=== PATIENT | female | born 1935 | race Caucasian/White ===

== ENCOUNTER 2018-04-26 23:37 | Inpatient (IN) | payer MEDICARE, OTHER ==
[~2018-04-26 23:37] MED LIST: AMLO5TAB22 PO; BUPR-86 PO; DONE10TA14 PO; HYDR-3533 PO; LIBRAX PO; OMPR20CCR PO; PROM25SU8 PO; ULTR50TA PO
[2018-04-26 23:39] VITALS: BP 230/97; PULSE 104; RESP 18; TEMP 97.5; O2SAT 95
[2018-04-26] MEDS ORDERED: TRAM50TA PO (23:56)
[2018-04-26 23:58] VITALS: BP_SYST 180; BP_SYST 208; BP_DIAS 95; BP_DIAS 98; PULSE 92; RESP 18; O2SAT 94
[2018-04-27] VITALS (22 sets, daily range): BP systolic 134–198; BP diastolic 60–85; PULSE 67–96; RESP 18; TEMP 98.2–99; O2SAT 93–97
[2018-04-27] MEDS ORDERED: SODIUM CHLORIDE 0.9% FLUSH 10 ML FLUSH IV FLUSH PRN ×2 (00:15→03:30)
--- NOTE | 2018-04-27 00:44 | RADRPT ---
EXAM DATE: 04/27/2018 12:38 AM EDT AGE/SEX: 82 years / Female INDICATIONS: Syncopal episode. CLINICAL DATA: This is the patient's initial encounter. Patient reports that signs and symptoms have been present for 1 day and indicates a pain score of 0/10. MEDICAL/SURGICAL HISTORY: Hypertension. Carcinoma, breast. . Lumpectomy. COMPARISON: No prior exams available for comparison. FINDINGS: Single AP view of the chest. The lungs are clear. Cardiomediastinal silhouette within norm al limits. No evidence of pleural effusion or pneumothorax. CONCLUSION: No acute cardiopulmonary disease identified. Electronically signed by: Rebel Javier MD 04/27/2018 12:43 AM EDT
[2018-04-27 00:49] LABS: BLOOD, URINE MOD (NEG); GLUCOSE,URINE NEG (NEG); KETONE, URINE 40 mg/dL (NEG); NITRITE,URINE NEG (NEG); PH, URINE 5.5 (5.0-8.5); URINE COLOR YELLOW (YELLW/STRAW); URINE LEUKOCYTE ESTERASE SMALL (NEG)
[2018-04-27 00:52] LABS: BILIRUBIN, URINE NEG (NEG)
[2018-04-27 00:55] LABS: BACTERIA, URINE FEW /hpf; SQUAMOUS EPITHELIAL CELL URINE > 8 /hpf (0-5)
[2018-04-27 01:20] LABS: AUTOMATED NEUTROPHIL # 9.2 TH/MM3 (1.8-7.7); BASOPHIL # 0.3 TH/MM3 (0-0.2); BASOPHIL % 2.8 % (0.0-2.0); EOSINOPHIL % 0.1 % (0.0-4.0); HEMATOCRIT 42.3 % (35.0-46.0); HEMOGLOBIN 14.9 GM/DL (11.6-15.3); LYMPH % 7.1 % (9.0-44.0); LYMPHOCYTE # 0.8 TH/MM3 (1.0-4.8); MEAN CELL VOLUME 93.6 FL (80.0-100.0); MEAN CORPUSCULAR HGB CONC 35.2 % (32.0-36.0); MEAN PLATELET VOLUME 10.1 FL (7.0-11.0); MONO % 6.1 % (0.0-8.0); MONOCYTE # 0.7 TH/MM3 (0-0.9); NEUT % 83.9 % (16.0-70.0); PLATELET COUNT 244 TH/MM3 (150-450); RED BLOOD COUNT 4.52 MIL/MM3 (4.00-5.30); RED CELL DISTRIBUTION WIDTH 13.1 % (11.6-17.2)
[2018-04-27 01:24] LABS: CHLORIDE 99 MEQ/L (98-107); SODIUM (NA) 134 MEQ/L (136-145)
[2018-04-27 01:28] LABS: CALCIUM 9.1 MG/DL (8.5-10.1); PROTHROMBIN TIME - PATIENT 10.5 SEC (9.8-11.6)
[2018-04-27 01:29] LABS: BICARBONATE 26.7 MEQ/L (21.0-32.0); BLOOD UREA NITROGEN 11 MG/DL (7-18); GLUCOSE,RANDOM 123 MG/DL (74-106)
[2018-04-27 01:31] LABS: ALT (GPT) 26 U/L (10-53); AST (GOT) 17 U/L (15-37)
[2018-04-27 01:32] LABS: CREATININE 0.81 MG/DL (0.50-1.00); GLOMERULAR FILTRATION RATE 67 ML/MIN (>89)
[2018-04-27 01:33] LABS: LACTIC ACID SEPSIS PROTOCOL 2.2 mmol/L (0.4-2.0); TOTAL BILIRUBIN ADULT 0.7 MG/DL (0.2-1.0); TOTAL PROTEIN 8.1 GM/DL (6.4-8.2)
[2018-04-27 01:34] LABS: ALKALINE PHOSPHATASE 57 U/L (45-117)
[2018-04-27 01:36] LABS: ACETAMINOPHEN LESS THAN 10.0 MCG/ML (10.0-30.0)
[2018-04-27 01:37] LABS: TROPONIN I 0.11 NG/ML (0.02-0.05)
--- NOTE | 2018-04-27 01:40 | PD ---
HPI Chief Complaint: Pain: Acute or Chronic Time Seen by Provider: 00:09 Travel History International Travel<30 days: No Contact w/Intl Traveler<30days: No Traveled to known affect area: No History of Present Illness HPI 82-year-old female is brought to the emergency room by her caregiver for evaluation of altered mental status and abdominal pain. Patient has history of chronic abdominal pain and chronic nausea for several years. Patient is under care of Dr. Gaston. Patient states her nausea and abdominal pain are worse over the weekend. Patient denies any fever chills. Patient denies any chest pain or shortness of breath. Patient has had no hematemesis or coffee-ground emesis. Patient denies diarrhea melena or hematochezia. Caregiver states that she is with the patient and her significant other Thursday through Thursday. Caregiver reports that on Thursday she was her typical self but today she seems confused disoriented complains of increasing nausea poor appetite and abdominal pain. Also caregiver reports that she suspects that the patient has been taking her significant other's medications as the significant other accused her of taking his medications. Patient was supposed to see her primary care provider on Thursday but canceled the appointment. Patient was reportedly within the past 2 months seen by her learning officer for urinary tract infection but has not been to any other doctor appointments according to the caregiver. Patient reports that she was seen by her vp site sometime recently for cardiac catheterization. The caregiver states that she has not seen a vp site does not have a vp site and has not had a cardiac catheterization. Patient rates her abdominal pain 7/10 intensity. No report of fall or known injury. Patient with known prior history of anxiety depression colon cancer with partial colectomy breast cancer with lumpectomy hypertension dyslipidemia and chronic pain syndrome. Patient is unable to identify exacerbating or alleviating factors. PFSH Past Medical History Narrative Medical Colon cancer status post partial colectomy breast cancer status post lumpectomy diminished hearing hypertension dyslipidemia tobacco use; nursing notes reviewed Cancer: Yes (breast, colon) Diminished Hearing: Yes Hypertension: Yes Past Surgical History Thoracic Surgery: Yes (lumpectomy, colon) Social History Alcohol Use: No Tobacco Use: Yes Substance Use: No Allergies-Medications (Allergen,Severity, Reaction): Coded Allergies: No Known Allergies (Unverified Allergy, Unknown, 04/27/18) Reported Meds & Prescriptions Reported Meds & Active Scripts Active Reported Tylenol (Acetaminophen) 325 Mg Tab 650 Mg PO Q4H PRN Lorazepam 1 Mg Tab 1 Mg PO Q6H PRN Tramadol (Tramadol HCl) 50 Mg Tab 50 Mg PO Q6H PRN Review of Systems ROS Limitations: Clinical Condition, Poor Historian General / Constitutional: No: Fever Eyes: No: Visual changes HENT: No: Congestion Cardiovascular: No: Chest Pain or Discomfort Respiratory: No: Shortness of Breath Gastrointestinal: Positive: Nausea, Abdominal Pain Genitourinary: No: Dysuria, Flank Pain Musculoskeletal: No: Myalgias, Arthralgias Skin: No Rash Neurologic: Positive: Weakness, Headache, Change in Mentation, No: Dizziness, Syncope, Focal Abnormalities, Coordination Problem, Slurred Speech, Paresthesia Psychiatric: No: Anxiety Hematologic/Lymphatic: No: Lymph Node Enlargement Physical Exam Narrative GENERAL: Well-developed well-nourished female no acute respiratory distress SKIN: Warm and dry. HEAD: Atraumatic. Normocephalic. EYES: Pupils equal and round. No scleral icterus. No injection or drainage. ENT: No nasal bleeding or discharge. Mucous membranes pink and moist. NECK: Trachea midline. No JVD. CARDIOVASCULAR: Regular rate and rhythm. RESPIRATORY: No accessory muscle use. Clear to auscultation. Breath sounds equal bilaterally. GASTROINTESTINAL: Abdomen soft, non-tender except left lower quadrant greater than left upper quadrant, nondistended. Hepatic and splenic margins not palpable. Rectal exam: Normal sphincter tone scant brown stool on exam glove Hemoccult negative. MUSCULOSKELETAL: Extremities without clubbing, cyanosis, or edema. No obvious deformities. NEUROLOGICAL: Awake and alert. No obvious cranial nerve deficits. Motor grossly within normal limits. Five out of 5 muscle strength in the arms and legs. Normal speech. PSYCHIATRIC: Appropriate mood and affect; insight and judgment normal. Data Data Last Documented VS Vital Signs Date Time Temp Pulse Resp B/P (MAP) Pulse Ox O2 Delivery O2 Flow Rate FiO2 04/27/18 03:06 92 18 198/83 (121) 96 Nasal Cannula 2.00 04/26/18 23:39 97.5 Orders Orders Electrocardiogram (04/27/18 00:10) Ammonia (04/27/18 00:10) Complete Blood Count With Diff (04/27/18 00:10) Comprehensive Metabolic Panel (04/27/18 00:10) Creatine Kinase (Cpk) (04/27/18 00:10) Prothrombin Time / Inr (Pt) (04/27/18 00:10) Act Partial Throm Time (Ptt) (04/27/18 00:10) Troponin I (04/27/18 00:10) Thyroid Stimulating Hormone (04/27/18 00:10) Urinalysis - C+S If Indicated (04/27/18 00:10) Lactic Acid Sepsis Protocol (04/27/18 00:10) Blood Culture (04/27/18 00:10) Chest, Single Ap (04/27/18 00:10) Ct Brain W/O Iv Contrast(Rout) (04/27/18 00:10) Blood Glucose (04/27/18 00:10) Ecg Monitoring (04/27/18 00:10) Iv Access Insert/Monitor (04/27/18 00:10) Oximetry (04/27/18 00:10) Sodium Chloride 0.9% Flush (Ns Flush) (04/27/18 00:15) Drug Screen, Random Urine (04/27/18 00:10) Alcohol (Ethanol) (04/27/18 00:10) Tylenol (Acetaminophen) (04/27/18 00:10) Salicylates (Aspirin) (04/27/18 00:10) Magnesium (Mg) (04/27/18 00:10) Ct Abd/Pel W Iv Contrast(Rout) (04/27/18 ) Urine Culture (04/27/18 00:30) Aspirin Chew (Aspirin Chew) (04/27/18 01:45) Nitroglycerin 2% Oint (Nitroglycerin 2% (04/27/18 01:45) Metoclopramide Inj (Reglan Inj) (04/27/18 01:45) Morphine Inj (Morphine Inj) (04/27/18 01:45) Ondansetron Odt (Zofran Odt) (04/27/18 02:00) Ceftriaxone Inj (Rocephin Inj) (04/27/18 02:00) Iohexol 350 Inj (Omnipaque 350 Inj) (04/27/18 02:26) Ciprofloxacin 400 Mg Premix (Cipro 400 M (04/27/18 03:00) Metronidazole 500 Mg Inj (Flagyl 500 Mg (04/27/18 03:00) Pantoprazole Inj (Protonix Inj) (04/27/18 03:00) Metoprolol Tartrate Inj (Lopressor Inj) (04/27/18 03:00) Heparin Inj (Heparin Inj) (04/27/18 03:15) Heparin-D5w 25,000 U/250 Ml (Heparin-D5w (04/27/18 03:15) Cbc No Diff, Includes Plts (04/30/18 06:00) Act Partial Throm Time (Ptt) (04/27/18 10:01) Occult Blood (Hemoccult) Stool (04/27/18 03:01) Ciprofloxacin 400 Mg Premix (Cipro 400 M (04/27/18 14:00) Metronidazole 500 Mg Inj (Flagyl 500 Mg (04/27/18 12:00) Morphine Inj (Morphine Inj) (04/27/18 03:30) Vital Signs (Adult) Q4H (04/27/18 03:20) Activity Oob With Assistance (04/27/18 03:20) Composition Worker / Telemetry .CONTINUOUS (04/27/18 03:20) Intake + Output BARBIE.QSHIFT (04/27/18 03:20) Diet Npo (04/27/18 Breakfast) Sodium Chlor 0.9% 1000 Ml Inj (Ns 1000 M (04/27/18 03:20) Sodium Chloride 0.9% Flush (Ns Flush) (04/27/18 03:30) Sodium Chloride 0.9% Flush (Ns Flush) (04/27/18 09:00) Acetaminophen (Tylenol) (04/27/18 03:30) Basic Metabolic Panel (Bmp) (04/28/18 06:00) Complete Blood Count With Diff (04/28/18 06:00) Creatine Kinase (Cpk) (04/27/18 06:55) Creatine Kinase (Cpk) (04/27/18 12:55) Troponin I (04/27/18 06:55) Troponin I (04/27/18 12:55) Electrocardiogram (04/27/18 06:55) Electrocardiogram (04/27/18 12:55) Resp Oxygen Frederick C Titrat 1-4 L (04/27/18 ) Case Management Consult (04/27/18 03:20) Naloxone Inj (Narcan Inj) (04/27/18 03:30) Inpatient Certification (04/27/18 ) Lorazepam (Ativan) (04/27/18 03:30) Admit To Inpatient (04/27/18 03:25) Prochlorperazine Inj (Compazine Inj) (04/27/18 03:30) Admit Order (Ed Use Only) (04/27/18 ) Composition Worker / Telemetry BARBIE.Q8H (04/27/18 03:25) Activity Bed Rest (04/27/18 03:25) Notify Dr: Other (04/27/18 03:25) Sodium Chlor 0.9% 1000 Ml Inj (Ns 1000 M (04/27/18 03:30) Labs Laboratory Tests Test 04/27/18 00:30 04/27/18 00:55 Urine Color YELLOW Urine Turbidity SL CLOUDY Urine pH 5.5 Urine Specific [place] GREATER/EQUAL 1.030 Urine Protein 30 mg/dL Urine Glucose (UA) NEG mg/dL Urine Ketones 40 mg/dL Urine Occult Blood MOD Urine Nitrite NEG Urine Bilirubin NEG Urine Urobilinogen 0.2 MG/DL Urine Leukocyte Esterase SMALL Urine RBC 4-9 /hpf Urine WBC 9-14 /hpf Urine Squamous Epithelial Cells > 8 /hpf Urine Bacteria FEW /hpf Microscopic Urinalysis Comment CULTURE INDICATED Urine Opiates Screen NEG Urine Barbiturates Screen NEG Urine Amphetamines Screen NEG Urine Benzodiazepines Screen NEG Urine Cocaine Screen NEG Urine Cannabinoids Screen NEG White Blood Count 11.0 TH/MM3 Red Blood Count 4.52 MIL/MM3 Hemoglobin 14.9 GM/DL Hematocrit 42.3 % Mean Corpuscular Volume 93.6 FL Mean Corpuscular Hemoglobin 33.0 PG Mean Corpuscular Hemoglobin Concent 35.2 % Red Cell Distribution Width 13.1 % Platelet Count 244 TH/MM3 Mean Platelet Volume 10.1 FL Neutrophils (%) (Auto) 83.9 % Lymphocytes (%) (Auto) 7.1 % Monocytes (%) (Auto) 6.1 % Eosinophils (%) (Auto) 0.1 % Basophils (%) (Auto) 2.8 % Neutrophils # (Auto) 9.2 TH/MM3 Lymphocytes # (Auto) 0.8 TH/MM3 Monocytes # (Auto) 0.7 TH/MM3 Eosinophils # (Auto) 0.0 TH/MM3 Basophils # (Auto) 0.3 TH/MM3 CBC Comment DIFF FINAL Differential Comment Prothrombin Time 10.5 SEC Prothromb Time International Ratio 1.0 RATIO Activated Partial Thromboplast Time 26.4 SEC Blood Urea Nitrogen 11 MG/DL Creatinine 0.81 MG/DL Random Glucose 123 MG/DL Total Protein 8.1 GM/DL Albumin 4.0 GM/DL Calcium Level 9.1 MG/DL Magnesium Level 2.0 MG/DL Alkaline Phosphatase 57 U/L Aspartate Amino Transf (AST/SGOT) 17 U/L Alanine Aminotransferase (ALT/SGPT) 26 U/L Total Bilirubin 0.7 MG/DL Sodium Level 134 MEQ/L Potassium Level 4.1 MEQ/L Chloride Level 99 MEQ/L Carbon Dioxide Level 26.7 MEQ/L Anion Gap 8 MEQ/L Estimat Glomerular Filtration Rate 67 ML/MIN Lactic Acid Level 2.2 mmol/L Ammonia LESS THAN 10 MCMOL/L Total Creatine Kinase 113 U/L Troponin I 0.11 NG/ML Thyroid Stimulating Hormone 3rd Gen 1.050 uIU/ML Salicylates Level LESS THAN 1.7 MG/DL Acetaminophen Level LESS THAN 10.0 MCG/ML Ethyl Alcohol Level LESS THAN 3 MG/DL MDM Medical Decision Making Medical Screen Exam Complete: Yes Emergency Medical Condition: Yes Medical Record Reviewed: Yes Interpretation(s) EKG: Normal sinus rhythm rate 90 first-degree AV block right bundle branch block QS inferiorly age-indeterminate; no comparison EKG Last Impressions Chest X-Ray 04/27/18 0010 Signed Impressions: CONCLUSION: No acute cardiopulmonary disease identified. CBC & BMP Diagram 04/27/18 00:55 Total Protein 8.1, Albumin 4.0, Calcium Level 9.1, Magnesium Level 2.0, Alkaline Phosphatase 57, Aspartate Amino Transf (AST/SGOT) 17, Alanine Aminotransferase (ALT/SGPT) 26, Total Bilirubin 0.7 Vital Signs Date Time Temp Pulse Resp B/P (MAP) Pulse Ox O2 Delivery O2 Flow Rate FiO2 04/26/18 23:58 92 18 180/95 (123) 94 208/98 (134) 04/26/18 23:39 97.5 104 18 230/97 (141) 95 UA: wbc's culture indicated Troponin I 0.11, elevated; CK 113, not elevated TSH: 1.050, within normal limits Lactic acid: 2.2 Urine drug screen negative acetaminophen and salicylate levels are not elevated ; alcohol less than 3, not elevated Last Impressions Head CT 04/27/18 001 Signed Impressions: CONCLUSION: No acute intracranial findings. Chest X-Ray 04/27/189 Signed Impressions: CONCLUSION: No acute cardiopulmonary disease identified. Abdomen/Pelvis CT 04/27/18 0000 Signed Impressions: CONCLUSION: 1. Mild circumferential wall thickening, adjacent edema, and mucosal enhanceme nt of the colon at the splenic fracture and proximal descending segment. Findin gs suggest colitis. Differential diagnosis includes infection and ischemia. 2. Postsurgical findings with evidence of proximal colon resection. 3. Mild hepatic steatosis. Gallbladder not visualized. 4. Degenerative findings lumbar spine. CBC & BMP Diagram 04/27/18 00:55 Total Protein 8.1, Albumin 4.0, Calcium Level 9.1, Magnesium Level 2.0, Alkaline Phosphatase 57, Aspartate Amino Transf (AST/SGOT) 17, Alanine Aminotransferase (ALT/SGPT) 26, Total Bilirubin 0.7 Vital Signs Date Time Temp Pulse Resp B/P (MAP) Pulse Ox O2 Delivery O2 Flow Rate FiO2 04/27/18 01:57 84 18 192/74 (113) Nasal Cannula 2.00 04/26/18 23:58 92 18 180/95 (123) 94 208/98 (134) 04/26/18 23:39 97.5 104 18 230/97 (141) 95 Differential Diagnosis Abdominal pain, colitis, diverticulitis, biliary colic, bowel obstruction, atypical appendicitis, UTI, abdominal aortic aneurysm, altered mentation, CVA, TIA, hyperammonemia, arrhythmia, metabolic encephalopathy, polysubstance ingestion, accidental overdose, ACS, SC Narrative Course Patient placed on electronic device monitor IV access obtained specimens collected and sent for resulting; EKG consistent with right bundle branch block QS inferiorly age-indeterminate Patient administered Reglan 10 mg IV Protonix 40 mg IV and morphine sulfate 2 mg IV for pain and nausea Patient administered aspirin 162 mg by mouth Nitropaste 1 inch to chest wall and Zofran 4 mg ODT CBC is automated differential is within normal limits except for 89% neutrophils by automated differential; lactic acid is elevated at 2.2 Metabolic panel grossly within normal range; troponin I however is elevated 0.11 with a CK of 113 not elevated; ammonia level was less than 10 not elevated ; TSH 1.[address] brain resulted and no acute abnormality identified chest x-ray reveals no lobar infiltrate CT abdomen pelvis shows intestinal wall thickening without pneumatosis concerning for colitis ischemic versus infectious unclear at this time rectal exam is negative for blood patient will be treated with IV Cipro and Flagyl presumptively and patient started on heparin infusion for elevated troponin I with markedly aorta and iliac calcification/atherosclerosis. At 3 AM patient reports that she feels well her mentation seems to be improved patient denies any pain except has reproducible left lower quadrant abdominal tenderness to palpation without guarding or rebound. Patient's case discussed with on-call medicine for admission for ACS abdominal pain with probable colitis concerning for possible early ischemic colitis. Abnormal urinalysis specimens clean catch with greater than 8 squamous epithelial cells--1 for culture and sensitivity Critical Care Narrative Aggregate critical care time was 35 minutes. Time to perform other separately billable procedures was not included in the critical care time. My time did not include minutes spent treating any other patients simultaneously or on activities that did not directly contribute to the patient's treatment. The services I provided to this patient were to treat and/or prevent clinically significant deterioration that could result in: Myocardial infarction bowel infarction septic shock I provided critical care services requiring my management, as noted below: Chart data review, documentation time, medication orders and management, vital sign assessments/reviewing monitor data, ordering and reviewing lab tests, ordering and interpreting/reviewing x-rays and diagnostic studies, care of the patient and discussion of the patient with the admitting physicians. [facility] Point of Care Internal Pos. & Neg. Controls: Passed Fecal Specimen Occult Blood: Negative Physician Communication Physician Communication call placed to Dr Mosqueda --admit to [facility]ic Diagnosis Primary Impression: Abdominal pain Qualified Codes: R10.32 - Left lower quadrant pain Additional Impressions: ACS (acute coronary syndrome) Acute colitis Admitting Information Admitting Physician Requests: Admit Ana Maria Galvez MD Apr 27, 2018 01:40
[2018-04-27] MEDS ORDERED: MORPHINE SULFATE 4 MG/ML INJ IV PUSH ONE (01:45)
[2018-04-27] MEDS ORDERED: NITROGLYCERIN 2% OINT 1 GM PACKET TOPICAL ONE (01:45)
[2018-04-27] MEDS ORDERED: METOCLOPRAMIDE HCL 10 MG/2 ML VIAL IV PUSH ONE (01:45)
[2018-04-27] MEDS ORDERED: ASPIRIN 81 MG CHEW TAB CHEW ONE (01:45)
[2018-04-27] MEDS ORDERED: cefTRIAXone INJ 1,000 MG in SODIUM CHLORIDE 0.9% INJ 100 ML IV ONE (02:00)
[2018-04-27] MEDS ORDERED: ONDANSETRON ODT 4 MG TAB PO ONE (02:00)
--- NOTE | 2018-04-27 02:25 | RADRPT ---
EXAM DATE: 04/27/2018 2:14 AM EDT AGE/SEX: 82 years / Female INDICATIONS: Altered mental status. CLINICAL DATA: This is the patient's initial encounter. Patient reports that signs and symptoms have been present for 1 day and indicates a pain score of 0/10. MEDICAL/SURGICAL HISTORY: Hypertension. Carcinoma, colon. Carcinoma, breast. None. RADIATION DOSE: 66.23 CTDI (mGy) COMPARISON: No prior exams available for comparison. TECHNIQUE: CT of the head without contrast. Using automated exposure control and adjustment of the mA and/or kV according to patient size, radiation dose was kept as low as reasonably achievable to ob tain optimal diagnostic quality images. FINDINGS: Cerebrum: The ventricles are normal for age. No evidence of midline shift, mass lesion, hemorrhage or acute infarction. No extraaxial fluid collections are seen. Posterior Fossa: The cerebellum and brainstem are intact. The 4th ventricle is midline. The cerebe llopontine angle is unremarkable. Extracranial: The visualized portion of the orbits is intact. Skull: The calvaria is intact. No evidence of skull fracture. CONCLUSION: No acute intracranial findings. Electronically signed by: Rebel Javier MD 04/27/2018 2:23 AM EDT
[2018-04-27] MEDS ORDERED: IOHEXOL 350 MG/ML 10 ML VIAL (for RAD DIAG) IVCONTRAST ONE (02:26)
--- NOTE | 2018-04-27 02:46 | RADRPT ---
EXAM DATE: 04/27/2018 2:25 AM EDT AGE/SEX: 82 years / Female INDICATIONS: Nausea for years; worsening. CLINICAL DATA: This is the patient's initial encounter. Patient reports that signs and symptoms have been present for > 1 year and indicates a pain score of 4/10. MEDICAL/SURGICAL HISTORY: Hypertension. Carcinoma, colon. Carcinoma, breast. None. ORAL CONTRAST: No oral contrast ingested. RADIATION DOSE: 15.27 CTDI (mGy) COMPARISON: No prior exams available for comparison. TECHNIQUE: Multiple contiguous axial images were obtained through the abdomen and pelvis following b olus infusion of 94 ml Omnipaque 350 (iohexol) nonionic water-soluble contrast as a single exam dos e. No oral contrast ingested. Using automated exposure control and adjustment of the mA and/or kV ac cording to patient size, the radiation dose was kept as low as reasonably achievable to obtain optima l diagnostic quality images. FINDINGS: Lower Lungs: Mild atelectasis at the lung bases. Liver: Mild diffuse hypodensity of the liver indicating mild hepatic steatosis. No focal mass identif ied. Gallbladder not identified. Spleen: Homogeneous density without enlargement. Pancreas: Diffuse atrophy of the pancreatic body and tail. Coarse calcification in the pancreatic purnima dy. No focal mass identified. Kidneys: Normal in size and shape. No evidence of mass or hydronephrosis. Adrenal Glands: Unremarkable. Aorta: Diffuse aortoiliac calcification. Aortic diameter within normal limits. Bowel/Mesentery: Small hiatal hernia. No evidence of bowel dilatation. Postsurgical findings in the right lower quadrant with evidence of prior hemicolectomy. Mild circumferential wall thickening, muco jerry enhancement, and mild surrounding edema of the colon at the splenic flexure/proximal descending s egment. No evidence of bowel wall pneumatosis. No free air or free fluid. Abdominal Wall: Intact. Retroperitoneum: No evidence of adenopathy in the retrocrural, para-aortic, or deep pelvic regions. Bladder: Contours are smooth. Reproductive Organs: No abnormal masses or calcifications seen. Inguinal: The inguinal region is unremarkable without evidence of adenopathy. Bony Structures: Moderate severity degenerative findings of the lower lumbar spine. CONCLUSION: 1. Mild circumferential wall thickening, adjacent edema, and mucosal enhancement of the colon at the splenic fracture and proximal descending segment. Findings suggest colitis. Differential diagnosis i ncludes infection and ischemia. 2. Postsurgical findings with evidence of proximal colon resection. 3. Mild hepatic steatosis. Gallbladder not visualized. 4. Degenerative findings lumbar spine. Electronically signed by: Rebel Javier MD 04/27/2018 2:44 AM EDT
[2018-04-27] MEDS ORDERED: METOPROLOL TARTRATE 5 MG/5 ML VIAL IV PUSH ONE (03:00)
[2018-04-27] MEDS ORDERED: CIPROFLOXACIN 400 MG PREMIX 200 ML IV ONE (03:00)
[2018-04-27] MEDS ORDERED: metroNIDAZOLE 500 MG INJ 100 ML IV ONE (03:00)
[2018-04-27] MEDS ORDERED: PANTOPRAZOLE SODIUM 40 MG VIAL IV PUSH ONE (03:00)
[2018-04-27] MEDS ORDERED: HEPARIN SODIUM - IV 10,000 UNITS/10 ML VIAL IV PUSH ONE (03:15)
[2018-04-27] MEDS ORDERED: LORA1TAB12 PO (03:19)
[2018-04-27] MEDS ORDERED: TYLE325T PO (03:20)
[2018-04-27] MEDS ORDERED: PROCHLORPERAZINE INJ 10 MG/2 ML VIAL IV PUSH PRN (03:30)
[2018-04-27] MEDS ORDERED: NALOXONE HCL 0.4 MG/ML AMP IV PUSH PRN (03:30)
[2018-04-27] MEDS ORDERED: cefTRIAXone INJ 1,000 MG in SODIUM CHLORIDE 0.9% INJ 100 ML IV SCH (03:30)
[2018-04-27] MEDS ORDERED: MORPHINE SULFATE 2 MG/ML SYRINGE IV PUSH PRN (03:30)
[2018-04-27] MEDS ORDERED: SODIUM CHLOR 0.9% 1000 ML INJ 1,000 ML IV SCH (03:30)
[2018-04-27] MEDS ORDERED: ACETAMINOPHEN 325 MG TAB PO PRN (03:30)
[2018-04-27] MEDS: HEPARIN-D5W 25,000 U/250 ML 250 ML IV PRN (03:38)
[2018-04-27] MEDS: LORazepam 1 MG TAB PO PRN ×4 (03:49→23:25)
[2018-04-27] MEDS: SODIUM CHLOR 0.9% 1000 ML INJ 1,000 ML IV SCH ×3 (05:27→23:25)
[2018-04-27] MEDS: cefTRIAXone INJ 1,000 MG in SODIUM CHLORIDE 0.9% INJ 100 ML IV SCH (05:50)
[2018-04-27 07:08] LABS: TROPONIN I 0.1 NG/ML (0.02-0.05)
--- NOTE | 2018-04-27 08:05 | EKG ---
Date Performed: 04/27/2018 Time Performed: 00:22:05 PTAGE: 82 years EKG: Baseline artifact present Sinus rhythm WITH FIRST DEGREE AV BLOCK RIGHT BUNDLE BRANCH BLOCK ABNORMAL ECG NO PREVIOUS TRACING DOCTOR: Giorgi Burns Interpretating Date/Time 04/27/2018 08:03:48
--- NOTE | 2018-04-27 08:07 | EKG ---
Date Performed: 04/27/2018 Time Performed: 07:07:45 PTAGE: 82 years EKG: Sinus rhythm Right bundle branch block Nonspecific ST and T wave abnormalities Cannot rule out Inferior myocardia l infarction ABNORMAL ECG There are no definite changes seen although both EKGs have baseline artifac t. PREVIOUS TRACING : 04/27/2018 00.22 DOCTOR: Giorgi Burns Interpretating Date/Time 04/27/2018 08:05:36
[2018-04-27] MEDS: SODIUM CHLORIDE 0.9% FLUSH 10 ML FLUSH IV FLUSH SCH ×2 (09:00→20:09)
[2018-04-27] MEDS: metroNIDAZOLE 500 MG INJ 100 ML IV SCH ×2 (11:57→20:09)
--- NOTE | 2018-04-27 12:01 | HHI.HP ---
History of Present Illness Primary Care Physician Sourav Gaston, DO Admission Diagnosis ACS; colitis Diagnoses: History of Present Illness 82-year-old female came to ER for AMS and abdominal pain. She has past history of chronic abdominal pain and chronic nausea for several years. Pain and nausea worse over the weekend. She denies vomiting, no diarrhea or loose stools. She has cancelled her last 4 appointments in office. Caregiver with her reported that on Thursday she was her typical self but today she seems confused disoriented complains of increasing nausea poor appetite and abdominal pain. She has been treated with several [facility] Also caregiver reports that she suspects that the patient has been taking her significant other's medications as the significant other accused her of taking his medications. Patient with known prior history of anxiety depression colon cancer with partial colectomy breast cancer with lumpectomy hypertension dyslipidemia and chronic pain syndrome. Review of Systems Constitutional: COMPLAINS OF: Fatigue, Change in appetite Gastrointestinal: COMPLAINS OF: Abdominal pain, Nausea Genitourinary: COMPLAINS OF: Dysuria Psychiatric: COMPLAINS OF: Anxiety Past Family Social History Allergies: Coded Allergies: No Known Allergies (Unverified Allergy, Unknown, 04/27/18) Past Medical History Cancer Colon and breast HTN HLD Past Surgical History Colectomy lumpectomy Reported Medications Reported Tylenol (Acetaminophen) 325 Mg Tab 650 Mg PO Q4H PRN Lorazepam 1 Mg Tab 1 Mg PO Q6H PRN Tramadol (Tramadol HCl) 50 Mg Tab 50 Mg PO Q6H PRN Active Ordered Medications Current Medications Medications (Trade) Dose Ordered Sig/Chica Route Start Time Stop Time Status Last Admin Heparin Sodium/ Dextrose 250 ml @ 9 mls/hr TITRATE PRN IV 04/27/18 03:15 04/27/18 03:38 Ciprofloxacin/ Dextrose 200 ml @ 200 mls/hr Q12H IV 04/27/18 14:00 Metronidazole 100 ml @ 100 mls/hr Q8H IV 04/27/18 12:00 (Morphine Inj) 2 mg Q3H PRN IV PUSH 04/27/18 03:30 Sodium Chloride 1,000 ml @ 100 mls/hr Q10H IV 04/27/18 03:20 04/27/18 05:27 (NS Flush) 2 ml UNSCH PRN IV FLUSH 04/27/18 03:30 (NS Flush) 2 ml BID IV FLUSH 04/27/18 09:00 (Tylenol) 650 mg Q4H PRN PO 04/27/18 03:30 (Narcan Inj) 0.4 mg UNSCH PRN IV PUSH 04/27/18 03:30 (Ativan) 1 mg Q6H PRN PO 04/27/18 03:30 04/27/18 10:59 (Compazine Inj) 5 mg Q4H PRN IV PUSH 04/27/18 03:30 Ceftriaxone Sodium 1000 mg/ Sodium Chloride 100 ml @ 200 mls/hr Q24H IV 04/27/18 06:00 04/27/18 05:50 (Catapres) 0.1 mg Q6H PRN PO 04/27/18 11:15 Social History positive for tobacco abuse Denies ETOH Physical Exam Vital Signs Vital Signs Date Time Temp Pulse Resp B/P (MAP) Pulse Ox O2 Delivery O2 Flow Rate FiO2 04/27/18 10:00 85 04/27/18 08:47 98.6 79 18 174/81 (112) 94 04/27/18 07:51 04/27/18 07:02 98.2 81 18 134/65 (88) 93 Room Air 04/27/18 05:15 96 Nasal Cannula 2.00 04/27/18 05:03 67 18 150/60 (90) 96 Nasal Cannula 2.00 04/27/18 03:46 81 18 153/74 (100) 97 Nasal Cannula 2.00 04/27/18 03:06 92 18 198/83 (121) 96 Nasal Cannula 2.00 04/27/18 02:55 92 194/85 (121) 96 2.00 04/27/18 01:57 84 18 192/74 (113) Nasal Cannula 2.00 04/27/18 00:00 93 04/26/18 23:58 92 18 180/95 (123) 94 208/98 (134) 04/26/18 23:39 97.5 104 18 230/97 (141) 95 Physical Exam GENERAL: Well-developed well-nourished female no acute respiratory distress SKIN: Warm and dry. HEAD: Atraumatic. Normocephalic. EYES: Pupils equal and round. No scleral icterus. No injection or drainage. ENT: No nasal bleeding or discharge. Mucous membranes pink and moist. NECK: Trachea midline. No JVD. CARDIOVASCULAR: Regular rate and rhythm. RESPIRATORY: Clear to auscultation. Breath sounds equal bilaterally, No Wheezes or Rhonchi GASTROINTESTINAL: Abdomen soft, tender left lower quadrant nondistended. MUSCULOSKELETAL: Extremities without clubbing, cyanosis, or edema. No obvious deformities. NEUROLOGICAL: Awake and alert. No obvious cranial nerve deficits. Normal speech , NIEVES PSYCHIATRIC: Appropriate mood and affect; insight and judgment normal. Laboratory Laboratory Tests Test 04/27/18 00:30 04/27/18 00:55 04/27/18 03:30 04/27/18 06:40 Urine Color YELLOW Urine Turbidity SL CLOUDY Urine pH 5.5 Urine Specific [place] GREATER/EQUAL 1.030 Urine Protein 30 Urine Glucose (UA) NEG Urine Ketones 40 Urine Occult Blood MOD Urine Nitrite NEG Urine Bilirubin NEG Urine Urobilinogen 0.2 Urine Leukocyte Esterase SMALL Urine RBC 4-9 Urine WBC 9-14 Urine Squamous Epithelial Cells > 8 Urine Bacteria FEW Microscopic Urinalysis Comment CULTURE INDICATED Urine Opiates Screen NEG Urine Barbiturates Screen NEG Urine Amphetamines Screen NEG Urine Benzodiazepines Screen NEG Urine Cocaine Screen NEG Urine Cannabinoids Screen NEG White Blood Count 11.0 Red Blood Count 4.52 Hemoglobin 14.9 Hematocrit 42.3 Mean Corpuscular Volume 93.6 Mean Corpuscular Hemoglobin 33.0 Mean Corpuscular Hemoglobin Concent 35.2 Red Cell Distribution Width 13.1 Platelet Count 244 Mean Platelet Volume 10.1 Neutrophils (%) (Auto) 83.9 Lymphocytes (%) (Auto) 7.1 Monocytes (%) (Auto) 6.1 Eosinophils (%) (Auto) 0.1 Basophils (%) (Auto) 2.8 Neutrophils # (Auto) 9.2 Lymphocytes # (Auto) 0.8 Monocytes # (Auto) 0.7 Eosinophils # (Auto) 0.0 Basophils # (Auto) 0.3 CBC Comment DIFF FINAL Differential Comment Prothrombin Time 10.5 Prothromb Time International Ratio 1.0 Activated Partial Thromboplast Time 26.4 Blood Urea Nitrogen 11 Creatinine 0.81 Random Glucose 123 Total Protein 8.1 Albumin 4.0 Calcium Level 9.1 Magnesium Level 2.0 Alkaline Phosphatase 57 Aspartate Amino Transf (AST/SGOT) 17 Alanine Aminotransferase (ALT/SGPT) 26 Total Bilirubin 0.7 Sodium Level 134 Potassium Level 4.1 Chloride Level 99 Carbon Dioxide Level 26.7 Anion Gap 8 Estimat Glomerular Filtration Rate 67 Lactic Acid Level 2.2 2.1 Ammonia LESS THAN 10 Total Creatine Kinase 113 123 Troponin I 0.11 0.10 Thyroid Stimulating Hormone 3rd Gen 1.050 Salicylates Level LESS THAN 1.7 Acetaminophen Level LESS THAN 10.0 Ethyl Alcohol Level LESS THAN 3 Test 04/27/18 10:30 Activated Partial Thromboplast Time 47.9 Date/Time Source Procedure Growth Status 04/27/18 01:00 Blood Peripheral Aerobic Blood Culture Pending Received 04/27/18 01:00 Blood Peripheral Anaerobic Blood Culture Pending Received 04/27/18 00:30 Urine Clean Catch Urine Culture Pending Received Result Diagram: 04/27/18 0055 04/27/18 0055 Imaging Last [address] 04/27/18 0010 Signed Impressions: CONCLUSION: No acute intracranial findings. Chest X-Ray 04/27/18 0010 Signed Impressions: CONCLUSION: No acute cardiopulmonary disease identified. Abdomen/Pelvis CT 04/27/18 0000 Signed Impressions: CONCLUSION: 1. Mild circumferential wall thickening, adjacent edema, and mucosal enhanceme nt of the colon at the splenic fracture and proximal descending segment. Findin gs suggest colitis. Differential diagnosis includes infection and ischemia. 2. Postsurgical findings with evidence of proximal colon resection. 3. Mild hepatic steatosis. Gallbladder not visualized. 4. Degenerative findings lumbar spine. Caprini VTE Risk Assessment Caprini VTE Risk Assessment: Mod/High Risk (score >= 2) Caprini Risk Assessment Model Point Value = 1 Point Value = 2 Point Value = 3 Point Value = 5 Age 41-60 Minor surgery BMI > 25 kg/m2 Swollen legs Varicose veins or History of unexplained or recurrent spontaneous Oral contraceptives or hormone replacement Sepsis (< 1 month) Serious lung disease, including pneumonia (< 1 month) Abnormal pulmonary function Acute myocardial infarction Congestive heart failure (< 1 month) History of inflammatory bowel disease Medical patient at bed rest Age 61-74 Arthroscopic surgery Major open surgery (> 45 min) Laparoscopic surgery (> 45 min) Malignancy Confined to bed (> 72 hours) Immobilizing plaster cast Central venous access Age >= 75 History of VTE Family history of VTE Factor V Leiden Prothrombin [id number] Lupus anticoagulant Anticardiolipin antibodies Elevated serum homocysteine Heparin-induced thrombocytopenia Other congenital or acquired thrombophilia Stroke (< 1 month) Elective arthroplasty Hip, pelvis, or leg fracture Acute spinal cord injury (< 1 month) Prophylaxis Regimen Total Risk Factor Score Risk Level Prophylaxis Regimen 0-1 Low Early ambulation 2 Moderate Order ONE of the following: *Sequential Compression Device (SCD) *Heparin 5000 units SQ BID 3-4 Higher Order ONE of the following medications: *Heparin 5000 units SQ TID *Enoxaparin/Lovenox 40 mg SQ daily (WT < 150 kg, CrCl > 30 mL/min) *Enoxaparin/Lovenox 30 mg SQ daily (WT < 150 kg, CrCl > 10-29 mL/min) *Enoxaparin/Lovenox 30 mg SQ BID (WT < 150 kg, CrCl > 30 mL/min) AND/OR *Sequential Compression Device (SCD) 5 or more Highest Order ONE of the following medications: *Heparin 5000 units SQ TID (Preferred with Epidurals) *Enoxaparin/Lovenox 40 mg SQ daily (WT < 150 kg, CrCl > 30 mL/min) *Enoxaparin/Lovenox 30 mg SQ daily (WT < 150 kg, CrCl > 10-29 mL/min) *Enoxaparin/Lovenox 30 mg SQ BID (WT < 150 kg, CrCl > 30 mL/min) AND *Sequential Compression Device (SCD) Assessment and Plan Problem List: (1) Abdominal pain ICD Codes: R10.9 - Unspecified abdominal pain Status: Acute (2) ACS (acute coronary syndrome) ICD Codes: I24.9 - Acute ischemic heart disease, unspecified Status: Acute (3) Acute colitis ICD Codes: K52.9 - Noninfective gastroenteritis and colitis, unspecified Status: Acute (4) Anxiety ICD Codes: F41.9 - Anxiety disorder, unspecified Assessment and Plan 04/27/18 Alert and oriented NPO, GI consult, for possible colitis infectious verse ischemic she has been give Flagyl, Cipro, and Rocephin, Compazine for nausea, currently comfortable. Elevated troponin, Cardiology consult, Nitro paste to chest wall. No reports of CP currently. Heparin drip 9/hr Blood culture urine culture pending. Problem Qualifiers (1) Abdominal pain: Qualified Codes: R10.32 - Left lower quadrant pain Edel Mares Apr 27, 2018 12:01
[2018-04-27] MEDS: CIPROFLOXACIN 400 MG PREMIX 200 ML IV SCH (13:42)
--- NOTE | 2018-04-27 14:49 | PD.CONS ---
HPI History of Present Illness This is a 82 year old F with PMH cancer cancer S/P colectomy and chemotherapy in 2005, HTN, HLD who presented to the ER yesterday with complaints of abdominal pain that has been going on for the past year, states that it has been constant for a year but has been worse over the past couple months. Pain is described as aching, located in her LLQ, worse with bowel movements. Also complaining of loose stools, has been having approximately 3-4 BMs in the morning, states yellow in color. History of cholecystectomy. Denies hematochezia and melena. Also complaining of nausea with occasional emesis for multiple months but states she is mostly spitting. Pt reports acid reflux, has been previously well controlled on home medication, however over the past few weeks has been getting worse. Denies any unintentional weight loss. Pt reports she has not had a colonoscopy since being diagnosed with colon cancer, she does not follow up with oncology, GI, or colorectal anymore. Denies ETOH, smoking, and illicit drug use. Of note, pt currently has elevated Troponin and is on a Heparin gtt, she is awaiting cardiology consult. (Noreen Larson) PFSH Past Medical History HTN HLD Colon cancer S/P chemo and colectomy Breast cancer S/P lymph node resection, lumpectomy, and radiation Past Surgical History Lumpectomy Colectomy (Noreen Larson) Coded Allergies: No Known Allergies (Unverified Allergy, Unknown, 04/27/18) Social History Denies ETOH Denies smoking Denies illicit drug use (Noreen Larson) Review of Systems Gastrointestinal: COMPLAINS OF: Abdominal pain, Diarrhea, Nausea, Vomiting, Heartburn, DENIES: Black stools, Bloody stools, Constipation, Difficulty Swallowing, Odynophagia, Swelling of Abdomen, Hematemesis (Noreen Larson) GI Exam Vitals I&O Vital Signs Date Time Temp Pulse Resp B/P (MAP) Pulse Ox O2 Delivery O2 Flow Rate FiO2 04/27/18 14:00 90 04/27/18 13:00 88 04/27/18 12:00 82 04/27/18 11:00 84 04/27/18 11:00 99.0 84 18 142/70 (94) 94 04/27/18 10:00 85 6/12/18 08:47 98.6 79 18 174/81 (112) 94 04/27/18 07:51 04/27/18 07:02 98.2 81 18 134/65 (88) 93 Room Air 04/27/18 05:15 96 Nasal Cannula 2.00 04/27/18 05:03 67 18 150/60 (90) 96 Nasal Cannula 2.00 04/27/18 03:46 81 18 153/74 (100) 97 Nasal Cannula 2.00 04/27/18 03:06 92 18 198/83 (121) 96 Nasal Cannula 2.00 04/27/18 02:55 92 194/85 (121) 96 2.00 04/27/18 01:57 84 18 192/74 (113) Nasal Cannula 2.00 04/27/18 00:00 93 04/26/18 23:58 92 18 180/95 (123) 94 208/98 (134) 04/26/18 23:39 97.5 104 18 230/97 (141) 95 I/O 04/26/18 04/26/18 04/26/18 04/27/18 04/27/18 04/27/18 07:00 15:00 23:00 07:00 15:00 23:00 Intake Total 400 ml Output Total 300 ml Balance 100 ml Intake IV Total 400 ml Output Urine Total 300 ml # Voids 2 Imaging Last Impressions Head CT 04/27/18 0010 Signed Impressions: CONCLUSION: No acute intracranial findings. Chest X-Ray 04/27/18 0010 Signed Impressions: CONCLUSION: No acute cardiopulmonary disease identified. Abdomen/Pelvis CT 04/27/18 0000 Signed Impressions: CONCLUSION: 1. Mild circumferential wall thickening, adjacent edema, and mucosal enhanceme nt of the colon at the splenic fracture and proximal descending segment. Findin gs suggest colitis. Differential diagnosis includes infection and ischemia. 2. Postsurgical findings with evidence of proximal colon resection. 3. Mild hepatic steatosis. Gallbladder not visualized. 4. Degenerative findings lumbar spine. Laboratory Test 04/27/18 00:30 04/27/18 00:55 04/27/18 03:30 04/27/18 06:40 Urine Color YELLOW Urine Turbidity SL CLOUDY Urine pH 5.5 Urine Specific [place] GREATER/EQUAL 1.030 Urine Protein 30 mg/dL Urine Glucose (UA) NEG mg/dL Urine Ketones 40 mg/dL Urine Occult Blood MOD Urine Nitrite NEG Urine Bilirubin NEG Urine Urobilinogen 0.2 MG/DL Urine Leukocyte Esterase SMALL Urine RBC 4-9 /hpf Urine WBC 9-14 /hpf Urine Squamous Epithelial Cells > 8 /hpf Urine Bacteria FEW /hpf Microscopic Urinalysis Comment CULTURE INDICATED Urine Opiates Screen NEG Urine Barbiturates Screen NEG Urine Amphetamines Screen NEG Urine Benzodiazepines Screen NEG Urine Cocaine Screen NEG Urine Cannabinoids Screen NEG White Blood Count 11.0 TH/MM3 Red Blood Count 4.52 MIL/MM3 Hemoglobin 14.9 GM/DL Hematocrit 42.3 % Mean Corpuscular Volume 93.6 FL Mean Corpuscular Hemoglobin 33.0 PG Mean Corpuscular Hemoglobin Concent 35.2 % Red Cell Distribution Width 13.1 % Platelet Count 244 TH/MM3 Mean Platelet Volume 10.1 FL Neutrophils (%) (Auto) 83.9 % Lymphocytes (%) (Auto) 7.1 % Monocytes (%) (Auto) 6.1 % Eosinophils (%) (Auto) 0.1 % Basophils (%) (Auto) 2.8 % Neutrophils # (Auto) 9.2 TH/MM3 Lymphocytes # (Auto) 0.8 TH/MM3 Monocytes # (Auto) 0.7 TH/MM3 Eosinophils # (Auto) 0.0 TH/MM3 Basophils # (Auto) 0.3 TH/MM3 CBC Comment DIFF FINAL Differential Comment Prothrombin Time 10.5 SEC Prothromb Time International Ratio 1.0 RATIO Activated Partial Thromboplast Time 26.4 SEC Blood Urea Nitrogen 11 MG/DL Creatinine 0.81 MG/DL Random Glucose 123 MG/DL Total Protein 8.1 GM/DL Albumin 4.0 GM/DL Calcium Level 9.1 MG/DL Magnesium Level 2.0 MG/DL Alkaline Phosphatase 57 U/L Aspartate Amino Transf (AST/SGOT) 17 U/L Alanine Aminotransferase (ALT/SGPT) 26 U/L Total Bilirubin 0.7 MG/DL Sodium Level 134 MEQ/L Potassium Level 4.1 MEQ/L Chloride Level 99 MEQ/L Carbon Dioxide Level 26.7 MEQ/L Anion Gap 8 MEQ/L Estimat Glomerular Filtration Rate 67 ML/MIN Lactic Acid Level 2.2 mmol/L 2.1 mmol/L Ammonia LESS THAN 10 MCMOL/L Total Creatine Kinase 113 U/L 123 U/L Troponin I 0.11 NG/ML 0.10 NG/ML Thyroid Stimulating Hormone 3rd Gen 1.050 uIU/ML Salicylates Level LESS THAN 1.7 MG/DL Acetaminophen Level LESS THAN 10.0 MCG/ML Ethyl Alcohol Level LESS THAN 3 MG/DL Test 04/27/18 10:30 Activated Partial Thromboplast Time 47.9 SEC Date/Time Source Procedure Growth Status 04/27/18 01:00 Blood Peripheral Aerobic Blood Culture Pending Received 04/27/18 01:00 Blood Peripheral Anaerobic Blood Culture Pending Received 04/27/18 00:30 Urine Clean Catch Urine Culture Pending Received Physical Examination HEENT: Normocephalic; atraumatic CHEST: Even/unlabored CARDIAC: RRR ABDOMEN: Soft, nondistended, nontender; bowel sounds active EXTREMITIES: No clubbing, cyanosis, or edema. SKIN: Normal; no rash; no jaundice. AUTOCAD OPERATOR: Alert and oriented times three. (Noreen Larson) Assessment and Plan Plan Assessment: - Abdominal pain, LLQ, states pain has been constant for the past year but increasing over the past couple months, worse with bowel movements, described as aching. Also complaining of nausea with occasional emesis, but states that it is more of her spitting up. Complaining of acid reflux, states was well controlled on home medication but has been worse recently CT abdomen and pelvis W IV contrast (04/27) Mild circumferential wall thickening, adjacent edema, and mucosal enhancement of the colon at the splenic fracture and proximal descending segment. Findings suggest colitis. Differential diagnosis includes infection and ischemia. Postsurgical findings with evidence of proximal colon resection. Mild hepatic steatosis. Gallbladder not visualized. Degenerative findings lumbar spine. - Elevated troponin- pt on Heparin gtt- awaiting cardiology consult Plan: Stool studies Cardiology consult Continue abx Will need EGD and colonoscopy when stable- inpatient vs outpatient Depending on cardiology plan Further recommendations based on clinical course and results of above Pt has been seen and examined by myself and Dr. Trevino and this note is written on his behalf (Noreen Larson) Physician Comments Seen with lois Sorto as above. Cardiac work up and clearance prior to any intervention. Will follow up with you. (Janine Trevino MD) Noreen Larson Apr 27, 2018 14:49 Janine Trevino MD Apr 27, 2018 23:26
--- NOTE | 2018-04-27 15:38 | MB ---
cc: Leann Hill MD DATE: 04/27/2018 HISTORY OF PRESENT ILLNESS: An 82-year-old white female with no previous cardiac history, presented with lower abdominal pain, nausea and poor appetite. She has not had any chest pain or dyspnea with exertion. She was found to have mildly elevated troponin, which is not trending. She currently is pain free. PAST MEDICAL HISTORY: Positive for hypertension, dyslipidemia, colon cancer, h/o colectomy, breast cancer, h/o lumpectomy. MEDICATIONS: Include: 1. Ciprofloxacin. 2. Metronidazole. 3. Ceftriaxone. 4. IV heparin. ALLERGIES: NONE. SOCIAL HISTORY: The patient denies smoking (h/o smoking noted in the chart). She does not drink alcohol. FAMILY HISTORY: Positive for heart disease in her father. REVIEW OF SYSTEMS: Otherwise negative. PHYSICAL EXAMINATION: VITAL SIGNS: Blood pressure 142/70, pulse 90 and regular. HEENT: Negative, 2+ carotid upstrokes, no bruits. LUNGS: Clear. HEART: Regular with no murmur, gallop, or rub. ABDOMEN: Soft with mild left lower quadrant tenderness. EXTREMITIES: Without edema. 2+ distal pulses. NEUROLOGIC: Grossly nonfocal. LABORATORY DATA: EKG was reviewed and showed normal sinus rhythm, first degree AV block and right bundle branch block. Hemoglobin 14.9. Potassium 4.1, creatinine 0.8. CK 113 and 123, troponin 0.11 and 0.10. TSH 1.1. DIAGNOSES: 1. Abdominal pain. 2. Mild troponin elevation. 3. Acute colitis. 4. Anxiety. 5. Hypertension. 6. Dyslipidemia. 7. History of colon cancer, status post colectomy. 8. History of breast cancer, status post lumpectomy. DISPOSITION: Ms. Garcia has not had any angina or heart failure symptoms. Her troponin is slightly elevated, but is not trending. We will obtain echocardiogram to evaluate left ventricular function. She is also scheduled for adenosine myocardial perfusion study tomorrow to evaluate for ischemia. I will follow her for cardiology during her hospitalization. Leann Hill MD OQ/TL , 03:03 PM , 03:37 PM ABRAM
--- NOTE | 2018-04-27 17:14 | ECHRPT ---
Indication: elevate troponin CONCLUSIONS The transthoracic study is normal by two-dimensional, color flow imaging and Doppler interrogation. BP: / HR: Rhythm: MEASUREMENTS (Male / Female) Normal Values Technical Quality: 2D ECHO LV Diastolic Diameter PLAX 4.1 cm 4.2 - 5.9 / 3.9 - 5.3 cm LV Systolic Diameter PLAX 2.9 cm IVS Diastolic Thickness 0.9 cm 0.6 - 1.0 / 0.6 - 0.9 cm LVPW Diastolic Thickness 0.9 cm 0.6 - 1.0 / 0.6 - 0.9 cm LV Relative Wall Thickness 0.5 RV Internal Dim ED PLAX 2.6 cm M-MODE Aortic Root Diameter MM 3.0 cm LA Systolic Diameter MM 3.5 cm LA Ao Ratio MM 1.2 AV Cusp Separation MM 1.9 cm DOPPLER Mitral E Point Velocity 110.0 cm/s Mitral A Point Velocity 140.0 cm/s Mitral E to A Ratio 0.8 LV E' Lateral Velocity 7.0 cm/s Mitral E to LV E' Lateral Ratio 15.7 FINDINGS LEFT VENTRICLE Normal left ventricular size and wall thickness. The left ventricular systolic function is normal wi th an estimated ejection fraction in the range of 60-65%. Left ventricular diastolic function parameters a re normal. RIGHT VENTRICLE Normal right ventricular size and systolic function. LEFT ATRIUM The left atrial size is normal. RIGHT ATRIUM The right atrial size is normal. ATRIAL SEPTUM Normal atrial septal thickness without atrial level shunting by limited color doppler interrogation. AORTA The aortic root and proximal ascending aorta are normal in size on limited imaging. MITRAL VALVE Structurally normal mitral valve. No mitral valve stenosis or regurgitation. AORTIC VALVE Trileaflet aortic valve. No aortic valve stenosis or regurgitation. TRICUSPID VALVE Structurally normal tricuspid valve. No tricuspid valve stenosis or regurgitation. PULMONARY VALVE No pulmonary valve regurgitation or stenosis. VESSELS The inferior vena cava was not well visualized. PERICARDIUM No pericardial effusion. Gael Ramsay MD, FACC (Electronically Signed) Final Date:27 April 2018 17:13
[2018-04-27] MEDS: MORPHINE SULFATE 4 MG/ML INJ IV PUSH PRN (18:07)
--- NOTE | 2018-04-27 20:28 | EKG ---
Date Performed: 04/27/2018 Time Performed: 15:58:18 PTAGE: 82 years EKG: Sinus rhythm Right bundle branch block Inferior infarct - age undetermined Abnormal ECG PREVIOUS TRACING : 04/27/2018 07.07 DOCTOR: Gael Ramsay Interpretating Date/Time 04/27/2018 20:27:39
[2018-04-28] VITALS (17 sets, daily range): BP systolic 137–178; BP diastolic 71–93; PULSE 79–90; RESP 16–18; TEMP 98–98.4; O2SAT 96–98
[2018-04-28] MEDS: CIPROFLOXACIN 400 MG PREMIX 200 ML IV SCH ×2 (02:02→14:00)
[2018-04-28] MEDS: MORPHINE SULFATE 4 MG/ML INJ IV PUSH PRN ×4 (02:53→22:36)
[2018-04-28] MEDS: metroNIDAZOLE 500 MG INJ 100 ML IV SCH ×3 (03:53→20:50)
[2018-04-28] MEDS: LORazepam 1 MG TAB PO PRN ×2 (05:23→13:29)
[2018-04-28] MEDS: cefTRIAXone INJ 1,000 MG in SODIUM CHLORIDE 0.9% INJ 100 ML IV SCH (05:23)
[2018-04-28] MEDS: HEPARIN-D5W 25,000 U/250 ML 250 ML IV PRN (05:28)
[2018-04-28 07:04] LABS: AUTOMATED NEUTROPHIL # 7.1 TH/MM3 (1.8-7.7); BASOPHIL % 0.4 % (0.0-2.0); EOSINOPHIL % 0.5 % (0.0-4.0); HEMATOCRIT 38.4 % (35.0-46.0); HEMOGLOBIN 12.8 GM/DL (11.6-15.3); LYMPH % 8.9 % (9.0-44.0); LYMPHOCYTE # 0.8 TH/MM3 (1.0-4.8); MEAN CELL VOLUME 96.6 FL (80.0-100.0); MEAN CORPUSCULAR HEMOGLOBIN 32.3 PG (27.0-34.0); MEAN CORPUSCULAR HGB CONC 33.4 % (32.0-36.0); MEAN PLATELET VOLUME 10.5 FL (7.0-11.0); MONO % 11.2 % (0.0-8.0); PLATELET COUNT 192 TH/MM3 (150-450); RED BLOOD COUNT 3.98 MIL/MM3 (4.00-5.30); RED CELL DISTRIBUTION WIDTH 13.8 % (11.6-17.2); WHITE BLOOD COUNT 8.9 TH/MM3 (4.0-11.0)
[2018-04-28 07:07] LABS: BICARBONATE 28.7 MEQ/L (21.0-32.0); CALCIUM 8.3 MG/DL (8.5-10.1); CREATININE 0.81 MG/DL (0.50-1.00)
[2018-04-28 07:11] LABS: TROPONIN I 0.03 NG/ML (0.02-0.05)
--- NOTE | 2018-04-28 07:27 | HHI.PR ---
Subjective Remarks Denies nausea abdominal discomfort this am No CP, SOB NPO for stress test Objective Vital Signs Date Time Temp Pulse Resp B/P (MAP) Pulse Ox O2 Delivery O2 Flow Rate FiO2 04/28/18 06:00 82 04/28/18 04:00 86 04/28/18 03:00 98.4 86 18 150/72 (98) 96 04/28/18 03:00 86 04/28/18 02:00 84 04/28/18 01:00 83 04/28/18 00:00 81 04/28/18 00:00 98.2 81 18 178/88 (118) 96 04/27/18 23:00 86 04/27/18 22:00 96 04/27/18 21:00 86 04/27/18 20:00 91 04/27/18 20:00 98.3 91 18 159/76 (103) 96 04/27/18 18:00 78 04/27/18 17:23 95 21 04/27/18 17:00 83 04/27/18 16:00 80 04/27/18 15:00 98.5 81 18 145/79 (101) 95 04/27/18 15:00 81 04/27/18 14:00 90 04/27/18 13:00 88 04/27/18 12:00 82 04/27/18 11:00 84 04/27/18 11:00 99.0 84 18 142/70 (94) 94 04/27/18 10:00 85 04/27/18 08:47 98.6 79 18 174/81 (112) 94 04/27/18 07:51 I/O 04/27/18 04/27/18 04/27/18 04/28/18 04/28/18 04/28/18 07:00 15:00 23:00 07:00 15:00 23:00 Intake Total 400 ml 130 ml 1440 ml Output Total 300 ml 600 ml 900 ml Balance 100 ml -470 ml 540 ml Intake Oral 30 ml 240 ml IV Total 400 ml 100 ml 1200 ml Output Urine Total 300 ml 600 ml 900 ml # Voids 2 # Bowel Movements 1 Result Diagram: 04/28/18 0515 04/28/18 0515 Imaging Last [address] 04/27/18 0010 Signed Impressions: CONCLUSION: No acute intracranial findings. Chest X-Ray 04/27/18 0010 Signed Impressions: CONCLUSION: No acute cardiopulmonary disease identified. Abdomen/Pelvis CT 04/27/18 0000 Signed Impressions: CONCLUSION: 1. Mild circumferential wall thickening, adjacent edema, and mucosal enhanceme nt of the colon at the splenic fracture and proximal descending segment. Findin gs suggest colitis. Differential diagnosis includes infection and ischemia. 2. Postsurgical findings with evidence of proximal colon resection. 3. Mild hepatic steatosis. Gallbladder not visualized. 4. Degenerative findings lumbar spine. Objective Remarks GENERAL: Well-developed well-nourished female no acute respiratory distress SKIN: Warm and dry. HEAD: Atraumatic. Normocephalic. EYES: Pupils equal and round. No scleral icterus. No injection or drainage. ENT: No nasal bleeding or discharge. Mucous membranes pink and moist. NECK: Trachea midline. No JVD. CARDIOVASCULAR: Regular rate and rhythm. RESPIRATORY: Clear to auscultation. Breath sounds equal bilaterally, No Wheezes or Rhonchi GASTROINTESTINAL: Abdomen soft, tender, + BS MUSCULOSKELETAL: Extremities without clubbing, cyanosis, or edema. No obvious deformities. NEUROLOGICAL: Awake and alert. No obvious cranial nerve deficits. Normal speech , NIEVES PSYCHIATRIC: Appropriate mood and affect; insight and judgment normal. Medications and IVs Current Medications Medications (Trade) Dose Ordered Sig/Chica Route Start Time Stop Time Status Last Admin Heparin Sodium/ Dextrose 250 ml @ 9 mls/hr TITRATE PRN IV 04/27/18 03:15 04/28/18 05:28 Ciprofloxacin/ Dextrose 200 ml @ 200 mls/hr Q12H IV 04/27/18 14:00 04/28/18 02:02 Metronidazole 100 ml @ 100 mls/hr Q8H IV 04/27/18 12:00 04/28/18 03:53 Sodium Chloride 1,000 ml @ 100 mls/hr Q10H IV 04/27/18 03:20 04/27/18 23:25 (NS Flush) 2 ml UNSCH PRN IV FLUSH 04/27/18 03:30 (NS Flush) 2 ml BID IV FLUSH 04/27/18 09:00 (Tylenol) 650 mg Q4H PRN PO 04/27/18 03:30 (Narcan Inj) 0.4 mg UNSCH PRN IV PUSH 04/27/18 03:30 (Ativan) 1 mg Q6H PRN PO 04/27/18 03:30 04/28/18 05:23 (Compazine Inj) 5 mg Q4H PRN IV PUSH 04/27/18 03:30 Ceftriaxone Sodium 1000 mg/ Sodium Chloride 100 ml @ 200 mls/hr Q24H IV 04/27/18 06:00 04/28/18 05:23 (Catapres) 0.1 mg Q6H PRN PO 04/27/18 11:15 (Morphine Inj) 2 mg Q3H PRN IV PUSH 04/27/18 18:00 04/28/18 02:53 Assessment and Plan Problem List: (1) Abdominal pain ICD Codes: R10.9 - Unspecified abdominal pain Status: Acute (2) ACS (acute coronary syndrome) ICD Codes: I24.9 - Acute ischemic heart disease, unspecified Status: Acute (3) Acute colitis ICD Codes: K52.9 - Noninfective gastroenteritis and colitis, unspecified Status: Acute (4) Anxiety ICD Codes: F41.9 - Anxiety disorder, unspecified Assessment and Plan 04/27/18 Alert and oriented NPO, GI consult, for possible colitis infectious verse ischemic she has been give Flagyl, Cipro, and Rocephin, Compazine for nausea, currently comfortable. Elevated troponin, Cardiology consult, Nitro paste to chest wall. No reports of CP currently. Heparin drip 9/hr Blood culture urine culture pending. 04/28/18 No complaints this am. She is NPO for Stress test, She is on Heparin 9/ hr. B/P elevated will start amlodipine 5 mg qd as she has been on that in past. Clonidine PRN. BC negative x1 day, Urine culture pending, Stool studies pending. Per GI EGD/coloscopy once cardiac cleared. Problem Qualifiers (1) Abdominal pain: Qualified Codes: R10.32 - Left lower quadrant pain Edel Mares Apr 28, 2018 07:27
[2018-04-28] MEDS ORDERED: amLODIPine BESYLATE 5 MG TAB PO SCH (09:00)
[2018-04-28] MEDS: SODIUM CHLORIDE 0.9% FLUSH 10 ML FLUSH IV FLUSH SCH ×2 (09:00→21:00)
[2018-04-28] MEDS: SODIUM CHLOR 0.9% 1000 ML INJ 1,000 ML IV SCH ×2 (09:20→19:20)
[2018-04-28] MEDS ORDERED: REGADENOSON INJ 0.4 MG/5 ML SYR ONE (11:20)
--- NOTE | 2018-04-28 14:29 | RADRPT ---
EXAM DATE: 04/28/2018 12:57 PM EDT AGE/SEX: 82 years / Female INDICATIONS:Angina. . Abdominal and chest pain for one day. CLINICAL DATA: This is the patient's initial encounter. Patient reports that signs and symptoms have been present for 1 day and indicates a pain score of 4/10. MEDICAL/SURGICAL HISTORY: Carcinoma, colon. Carcinoma, breast. Hypertension. . Colectomy. COMPARISON: No prior exams available for comparison. No external comparison. DOSE: 25.9 mCi Tc 99m Myoview at rest 8.1 mCi [id number] at stress 0.4 mg Lexiscan STRESS SYMPTOMS: None. EJECTION FRACTION: > 70% % TECHNIQUE: The patient underwent pharmacologic stress with infusion of prescribed dose. Continuous ECG tracing was monitored during stress. Gated SPECT imaging was performed after stress and conventi onal SPECT imaging was performed at rest. The examination was performed on a SPECT/CT scanner, both attenuation and non-corrected datasets were reviewed. FINDINGS: Distribution: The maximum perfused segment at stress is in the anteroseptal wall. Perfusion Study: The pattern of perfusion at stress is within normal limits. Gated Study: There are intact wall motion and wall thickening without hypokinetic or dyskinetic segm ents. The ejection fraction is calculated at > 70%%. RISK CATEGORY: Low (<1% Annual Motality Rate) CONCLUSION: 1. No reversible perfusion defect to indicate stress-induced myocardial ischemia is identified. Electronically signed by: Celestino Yanez MD 04/28/2018 2:27 PM EDT
--- NOTE | 2018-04-28 15:46 | PD.CARD.PN ---
Subjective Subjective Remarks NO CP or SOB, still c/o intermittent lower abd pain Objective Medications Current Medications Medications (Trade) Dose Ordered Sig/Chica Route Start Time Stop Time Status Last Admin Heparin Sodium/ Dextrose 250 ml @ 9 mls/hr TITRATE PRN IV 04/27/18 03:15 04/28/18 05:28 Ciprofloxacin/ Dextrose 200 ml @ 200 mls/hr Q12H IV 04/27/18 14:00 04/28/18 02:02 Metronidazole 100 ml @ 100 mls/hr Q8H IV 04/27/18 12:00 04/28/18 13:29 Sodium Chloride 1,000 ml @ 100 mls/hr Q10H IV 04/27/18 03:20 04/28/18 09:20 (NS Flush) 2 ml UNSCH PRN IV FLUSH 04/27/18 03:30 (NS Flush) 2 ml BID IV FLUSH 04/27/18 09:00 (Tylenol) 650 mg Q4H PRN PO 04/27/18 03:30 (Narcan Inj) 0.4 mg UNSCH PRN IV PUSH 04/27/18 03:30 (Ativan) 1 mg Q6H PRN PO 04/27/18 03:30 04/28/18 13:29 (Compazine Inj) 5 mg Q4H PRN IV PUSH 04/27/18 03:30 Ceftriaxone Sodium 1000 mg/ Sodium Chloride 100 ml @ 200 mls/hr Q24H IV 04/27/18 06:00 04/28/18 05:23 (Catapres) 0.1 mg Q6H PRN PO 04/27/18 11:15 (Morphine Inj) 2 mg Q3H PRN IV PUSH 04/27/18 18:00 04/28/18 13:29 (Norvasc) 5 mg DAILY PO 04/28/18 09:00 04/28/18 09:52 Vital Signs / I&O Vital Signs Date Time Temp Pulse Resp B/P (MAP) Pulse Ox O2 Delivery O2 Flow Rate FiO2 04/28/18 15:00 98.2 87 18 137/93 (108) 98 04/28/18 14:19 18 04/28/18 07:20 98.0 81 16 174/71 (105) 98 04/28/18 06:00 82 04/28/18 04:00 86 04/28/18 03:00 98.4 86 18 150/72 (98) 96 04/28/18 03:00 86 04/28/18 02:00 84 04/28/18 01:00 83 04/28/18 00:00 81 04/28/18 00:00 98.2 81 18 178/88 (118) 96 04/27/18 23:00 86 04/27/18 22:00 96 04/27/18 21:00 86 04/27/18 20:00 91 04/27/18 20:00 98.3 91 18 159/76 (103) 96 04/27/18 18:00 78 04/27/18 17:23 95 21 04/27/18 17:00 83 04/27/18 16:00 80 I/O 04/27/18 04/27/18 04/27/18 04/28/18 04/28/18 04/28/18 06:59 14:59 22:59 06:59 14:59 22:59 Intake Total 400 ml 130 ml 1440 ml Output Total 300 ml 600 ml 900 ml Balance 100 ml -470 ml 540 ml Intake Oral 30 ml 240 ml IV Total 400 ml 100 ml 1200 ml Output Urine Total 300 ml 600 ml 900 ml # Voids 2 # Bowel Movements 1 Physical Exam GENERAL: In NAD. SKIN: Warm and dry. HEAD: Normocephalic. EYES: No scleral icterus. No injection or drainage. NECK: Supple, trachea midline. No JVD or lymphadenopathy. CARDIOVASCULAR: Regular rate and rhythm without murmurs, gallops, or rubs. RESPIRATORY: Breath sounds equal bilaterally. No accessory muscle use. GASTROINTESTINAL: Abdomen soft, non-tender, nondistended. MUSCULOSKELETAL: No cyanosis, or edema. Laboratory Laboratory Tests Test 04/27/18 16:05 04/28/18 02:45 04/28/18 05:15 Activated Partial Thromboplast Time 57.8 SEC 82.3 SEC Stool C. difficile Toxin (PCR) NEGATIVE Stl C. difficile Toxin Epiderm 027 PRESUMPTIVE NEGATIVE White Blood Count 8.9 TH/MM3 Red Blood Count 3.98 MIL/MM3 Hemoglobin 12.8 GM/DL Hematocrit 38.4 % Mean Corpuscular Volume 96.6 FL Mean Corpuscular Hemoglobin 32.3 PG Mean Corpuscular Hemoglobin Concent 33.4 % Red Cell Distribution Width 13.8 % Platelet Count 192 TH/MM3 Mean Platelet Volume 10.5 FL Neutrophils (%) (Auto) 79.0 % Lymphocytes (%) (Auto) 8.9 % Monocytes (%) (Auto) 11.2 % Eosinophils (%) (Auto) 0.5 % Basophils (%) (Auto) 0.4 % Neutrophils # (Auto) 7.1 TH/MM3 Lymphocytes # (Auto) 0.8 TH/MM3 Monocytes # (Auto) 1.0 TH/MM3 Eosinophils # (Auto) 0.0 TH/MM3 Basophils # (Auto) 0.0 TH/MM3 CBC Comment DIFF FINAL Differential Comment Blood Urea Nitrogen 8 MG/DL Creatinine 0.81 MG/DL Random Glucose 117 MG/DL Calcium Level 8.3 MG/DL Sodium Level 144 MEQ/L Potassium Level 3.8 MEQ/L Chloride Level 107 MEQ/L Carbon Dioxide Level 28.7 MEQ/L Anion Gap 8 MEQ/L Estimat Glomerular Filtration Rate 67 ML/MIN Total Creatine Kinase 294 U/L Creatine Kinase MB 5.2 NG/ML Creatine Kinase MB % 1.8 % Troponin I 0.03 NG/ML Imaging Last 24 hours Impressions Myocardial Perfusion Scan Nuc Med 04/28/18 0800 Signed Impressions: CONCLUSION: 1. No reversible perfusion defect to indicate stress-induced myocardial ischem ia is identified. Assessment and Plan Problem List: (1) Abdominal pain ICD Codes: R10.9 - Unspecified abdominal pain Status: Acute (2) Elevated troponin level ICD Codes: R74.8 - Abnormal levels of other serum enzymes (3) Dyslipidemia ICD Codes: E78.5 - Hyperlipidemia, unspecified (4) HTN (hypertension) ICD Codes: I10 - Essential (primary) hypertension Assessment and Plan No angina or CHF. Adenosine stress test with no evidence of ischemia. Echo with nl LV systolic function. No evidence of ACS, discontinue heparin. GI eval in progress. Increase activity, PT. Problem Qualifiers (1) Abdominal pain: Qualified Codes: R10.32 - Left lower quadrant pain Leann Hill MD Apr 28, 2018 15:46
[2018-04-28] MEDS: cloNIDine HCL 0.1 MG TAB PO PRN (18:15)
[2018-04-29] VITALS (23 sets, daily range): BP systolic 148–178; BP diastolic 70–85; PULSE 55–100; RESP 18–20; TEMP 97.4–98; O2SAT 95–98
[2018-04-29] MEDS: MORPHINE SULFATE 4 MG/ML INJ IV PUSH PRN ×5 (01:44→21:18)
[2018-04-29] MEDS: CIPROFLOXACIN 400 MG PREMIX 200 ML IV SCH ×2 (01:44→14:32)
[2018-04-29] MEDS: LORazepam 1 MG TAB PO PRN ×5 (03:43→22:51)
[2018-04-29] MEDS: metroNIDAZOLE 500 MG INJ 100 ML IV SCH ×3 (03:44→21:18)
[2018-04-29] MEDS: SODIUM CHLOR 0.9% 1000 ML INJ 1,000 ML IV SCH ×2 (05:20→15:20)
[2018-04-29] MEDS: cefTRIAXone INJ 1,000 MG in SODIUM CHLORIDE 0.9% INJ 100 ML IV SCH (06:38)
--- NOTE | 2018-04-29 08:37 | HHI.PR ---
Subjective Remarks Denies nausea abdominal discomfort this am No CP, SOB, voices she did not sleep well NPO, she voices going for Upper Gi Objective Vital Signs Date Time Temp Pulse Resp B/P (MAP) Pulse Ox O2 Delivery O2 Flow Rate FiO2 04/29/18 08:21 100 04/29/18 07:48 67 04/29/18 04:54 62 04/29/18 04:17 67 18 162/84 (110) 95 04/29/18 01:54 16 04/29/18 01:41 75 18 178/82 (114) 97 04/29/18 00:00 75 18 178/82 (114) 97 04/29/18 00:00 76 04/28/18 21:00 79 04/28/18 18:00 86 04/28/18 17:25 98 21 04/28/18 17:00 88 04/28/18 16:00 90 04/28/18 15:00 98.2 87 18 137/93 (108) 98 04/28/18 15:00 80 04/28/18 14:00 88 04/28/18 09:00 86 I/O 04/28/18 04/28/18 04/28/18 04/29/18 04/29/18 04/29/18 07:00 15:00 23:00 07:00 15:00 23:00 Intake Total 1440 ml 240 ml 640 ml Output Total 900 ml 1300 ml 1300 ml Balance 540 ml -1060 ml -660 ml Intake Oral 240 ml 240 ml 240 ml IV Total 1200 ml 400 ml Output Urine Total 900 ml 1300 ml 1300 ml # Bowel Movements 1 Result Diagram: 04/28/18 0515 04/28/18 0515 Imaging Last 72 hours Impressions Myocardial Perfusion Scan Nuc Med 04/28/18 0800 Signed Impressions: CONCLUSION: 1. No reversible perfusion defect to indicate stress-induced myocardial ischem ia is identified. Head CT 04/27/18 0010 Signed Impressions: CONCLUSION: No acute intracranial findings. Chest X-Ray 04/27/18 0010 Signed Impressions: CONCLUSION: No acute cardiopulmonary disease identified. Abdomen/Pelvis CT 04/27/18 0000 Signed Impressions: CONCLUSION: 1. Mild circumferential wall thickening, adjacent edema, and mucosal enhanceme nt of the colon at the splenic fracture and proximal descending segment. Findin gs suggest colitis. Differential diagnosis includes infection and ischemia. 2. Postsurgical findings with evidence of proximal colon resection. 3. Mild hepatic steatosis. Gallbladder not visualized. 4. Degenerative findings lumbar spine. Procedures Nuclear stress on 04/27/18 Other Results Microbiology Date/Time Source Procedure Growth Status 04/27/18 01:00 Blood Peripheral Aerobic Blood Culture - Preliminary NO GROWTH IN 1 DAY Resulted 04/27/18 01:00 Blood Peripheral Anaerobic Blood Culture - Preliminary NO GROWTH IN 1 DAY Resulted 04/28/18 02:45 Stool Stool Cryptosporidium Exam Pending Received 04/28/18 02:45 Stool Stool Giardia Antigen (CHITO) Pending Received 04/27/18 00:30 Urine Clean Catch Urine Culture - Final 50-100,000 CFU/ML MIXED GRAM POSITIVE... Complete Objective Remarks GENERAL: Well-developed well-nourished female no acute respiratory distress SKIN: Warm and dry. HEAD: Atraumatic. Normocephalic. EYES: Pupils equal and round. No scleral icterus. No injection or drainage. ENT: No nasal bleeding or discharge. Mucous membranes pink and moist. NECK: Trachea midline. No JVD. CARDIOVASCULAR: Regular rate and rhythm. RESPIRATORY: Clear to auscultation. Breath sounds equal bilaterally, No Wheezes or Rhonchi GASTROINTESTINAL: Abdomen soft, tender, + BS MUSCULOSKELETAL: Extremities without clubbing, cyanosis, or edema. No obvious deformities. NEUROLOGICAL: Awake and alert. No obvious cranial nerve deficits. Normal speech , NIEVES PSYCHIATRIC: Appropriate mood and affect; insight and judgment normal. Medications and IVs Current Medications Medications (Trade) Dose Ordered Sig/Chica Route Start Time Stop Time Status Last Admin Ciprofloxacin/ Dextrose 200 ml @ 200 mls/hr Q12H IV 04/27/18 14:00 04/29/18 01:44 Metronidazole 100 ml @ 100 mls/hr Q8H IV 04/27/18 12:00 04/29/18 03:44 Sodium Chloride 1,000 ml @ 100 mls/hr Q10H IV 04/27/18 03:20 04/28/18 09:20 (NS Flush) 2 ml UNSCH PRN IV FLUSH 04/27/18 03:30 (NS Flush) 2 ml BID IV FLUSH 04/27/18 09:00 (Tylenol) 650 mg Q4H PRN PO 04/27/18 03:30 (Narcan Inj) 0.4 mg UNSCH PRN IV PUSH 04/27/18 03:30 (Ativan) 1 mg Q6H PRN PO 04/27/18 03:30 04/29/18 03:43 (Compazine Inj) 5 mg Q4H PRN IV PUSH 04/27/18 03:30 Ceftriaxone Sodium 1000 mg/ Sodium Chloride 100 ml @ 200 mls/hr Q24H IV 04/27/18 06:00 04/29/18 06:38 (Catapres) 0.1 mg Q6H PRN PO 04/27/18 11:15 04/28/18 18:15 (Morphine Inj) 2 mg Q3H PRN IV PUSH 04/27/18 18:00 04/29/18 01:44 (Norvasc) 5 mg DAILY PO 04/28/18 09:00 04/28/18 09:52 Assessment and Plan Problem List: (1) Abdominal pain ICD Codes: R10.9 - Unspecified abdominal pain Status: Acute (2) ACS (acute coronary syndrome) ICD Codes: I24.9 - Acute ischemic heart disease, unspecified Status: Acute (3) Acute colitis ICD Codes: K52.9 - Noninfective gastroenteritis and colitis, unspecified Status: Acute (4) Anxiety ICD Codes: F41.9 - Anxiety disorder, unspecified Assessment and Plan 04/27/18 Alert and oriented NPO, GI consult, for possible colitis infectious verse ischemic she has been give Flagyl, Cipro, and Rocephin, Compazine for nausea, currently comfortable. Elevated troponin, Cardiology consult, Nitro paste to chest wall. No reports of CP currently. Heparin drip 9/hr Blood culture urine culture pending. 04/28/18 No complaints this am. She is NPO for Stress test, She is on Heparin 9/ hr. B/P elevated will start amlodipine 5 mg qd as she has been on that in past. Clonidine PRN. BC negative x1 day, Urine culture pending, Stool studies pending. Per GI EGD/coloscopy once cardiac cleared. 04/29/18- Voices didn't sleep well. She tell me she is going for an upper GI today she is NPO. No order seen in chart. Stool culture show Campylobacter Species. Gi Following. No abdominal discomfort or pain currently. Heparin DC r/ t negative Stress test yesterday. BP still elevated amlodipine increased. Cont to monitor. She is having some vaginal bleeding, she has been seeing Dr Mendoza outpatient for that. She did not go to the last apt, she is not happy with her. She would like to see different MD. Problem Qualifiers (1) Abdominal pain: Qualified Codes: R10.32 - Left lower quadrant pain Edel Mares Apr 29, 2018 08:37
[2018-04-29] MEDS: SODIUM CHLORIDE 0.9% FLUSH 10 ML FLUSH IV FLUSH SCH ×2 (08:58→21:18)
--- NOTE | 2018-04-29 11:53 | PD.CARD.PN ---
Subjective Subjective Remarks NO CP or SOB, mild abd pain Objective Medications Current Medications Medications (Trade) Dose Ordered Sig/Chica Route Start Time Stop Time Status Last Admin Ciprofloxacin/ Dextrose 200 ml @ 200 mls/hr Q12H IV 04/27/18 14:00 04/29/18 01:44 Metronidazole 100 ml @ 100 mls/hr Q8H IV 04/27/18 12:00 04/29/18 03:44 Sodium Chloride 1,000 ml @ 100 mls/hr Q10H IV 04/27/18 03:20 04/28/18 09:20 (NS Flush) 2 ml UNSCH PRN IV FLUSH 04/27/18 03:30 (NS Flush) 2 ml BID IV FLUSH 04/27/18 09:00 (Tylenol) 650 mg Q4H PRN PO 04/27/18 03:30 (Narcan Inj) 0.4 mg UNSCH PRN IV PUSH 04/27/18 03:30 (Ativan) 1 mg Q6H PRN PO 04/27/18 03:30 04/29/18 10:00 (Compazine Inj) 5 mg Q4H PRN IV PUSH 04/27/18 03:30 Ceftriaxone Sodium 1000 mg/ Sodium Chloride 100 ml @ 200 mls/hr Q24H IV 04/27/18 06:00 04/29/18 06:38 (Catapres) 0.1 mg Q6H PRN PO 04/27/18 11:15 04/28/18 18:15 (Morphine Inj) 2 mg Q3H PRN IV PUSH 04/27/18 18:00 04/29/18 09:56 (Norvasc) 10 mg DAILY PO 04/29/18 09:15 04/29/18 09:06 Vital Signs / I&O Vital Signs Date Time Temp Pulse Resp B/P (MAP) Pulse Ox O2 Delivery O2 Flow Rate FiO2 04/29/18 11:46 97.4 64 18 157/76 (103) 04/29/18 11:29 55 04/29/18 10:08 78 04/29/18 09:42 98.0 67 20 160/78 (105) 98 04/29/18 09:40 96 21 04/29/18 09:36 68 04/29/18 08:21 100 04/29/18 07:48 67 04/29/18 04:54 62 6/14/18 04:17 67 18 162/84 (110) 95 04/29/18 01:54 16 04/29/18 01:41 75 18 178/82 (114) 97 04/29/18 00:00 75 18 178/82 (114) 97 04/29/18 00:00 76 04/28/18 21:00 79 04/28/18 18:00 86 04/28/18 17:25 98 21 04/28/18 17:00 88 04/28/18 16:00 90 04/28/18 15:00 98.2 87 18 137/93 (108) 98 04/28/18 15:00 80 04/28/18 14:00 88 I/O 04/28/18 04/28/18 04/28/18 04/29/18 04/29/18 04/29/18 07:00 15:00 23:00 07:00 15:00 23:00 Intake Total 1440 ml 240 ml 640 ml Output Total 900 ml 1300 ml 1300 ml Balance 540 ml -1060 ml -660 ml Intake Oral 240 ml 240 ml 240 ml IV Total 1200 ml 400 ml Output Urine Total 900 ml 1300 ml 1300 ml # Bowel Movements 1 Physical Exam GENERAL: In NAD. SKIN: Warm and dry. HEAD: Normocephalic. EYES: No scleral icterus. No injection or drainage. NECK: Supple, trachea midline. No JVD or lymphadenopathy. CARDIOVASCULAR: Regular rate and rhythm without murmurs, gallops, or rubs. RESPIRATORY: Breath sounds equal bilaterally. No accessory muscle use. GASTROINTESTINAL: Abdomen soft, non-tender, nondistended. MUSCULOSKELETAL: No cyanosis, or edema. Laboratory Laboratory Tests Test 04/28/18 18:59 Activated Partial Thromboplast Time 28.2 SEC Assessment and Plan Problem List: (1) Abdominal pain ICD Codes: R10.9 - Unspecified abdominal pain Status: Acute (2) Elevated troponin level ICD Codes: R74.8 - Abnormal levels of other serum enzymes (3) Dyslipidemia ICD Codes: E78.5 - Hyperlipidemia, unspecified (4) HTN (hypertension) ICD Codes: I10 - Essential (primary) hypertension Assessment and Plan No new cardiac issues. Adenosine stress test with no evidence of ischemia. Echo with nl LV systolic function. No evidence of ACS. GI eval in progress, pt cleared for GI procedures from cardiac standpoint. Increase activity, PT. Problem Qualifiers (1) Abdominal pain: Qualified Codes: R10.32 - Left lower quadrant pain Leann Hill MD Apr 29, 2018 11:53
--- NOTE | 2018-04-29 13:37 | HHI.GIFU ---
Subjective Remarks Pt resting in bed, in no apparent distress Complaining of continued lower abdominal pain Also still having loose, yellow stools (Noreen Larson) Objective Vitals I&O Vital Signs Date Time Temp Pulse Resp B/P (MAP) Pulse Ox O2 Delivery O2 Flow Rate FiO2 04/29/18 13:00 80 04/29/18 12:34 74 04/29/18 11:46 97.4 64 18 157/76 (103) 04/29/18 11:29 55 04/29/18 10:08 78 04/29/18 09:42 98.0 67 20 160/78 (105) 98 04/29/18 09:40 96 21 04/29/18 09:36 68 04/29/18 08:21 100 04/29/18 07:48 67 04/29/18 04:54 62 04/29/18 04:17 67 18 162/84 (110) 95 04/29/18 01:54 16 04/29/18 01:41 75 18 178/82 (114) 97 04/29/18 00:00 75 18 178/82 (114) 97 04/29/18 00:00 76 04/28/18 21:00 79 04/28/18 18:00 86 04/28/18 17:25 98 21 04/28/18 17:00 88 04/28/18 16:00 90 04/28/18 15:00 98.2 87 18 137/93 (108) 98 04/28/18 15:00 80 04/28/18 14:00 88 I/O 04/28/18 04/28/18 04/28/18 04/29/18 04/29/18 04/29/18 06:59 14:59 22:59 06:59 14:59 22:59 Intake Total 1440 ml 240 ml 640 ml Output Total 900 ml 1300 ml 1300 ml Balance 540 ml -1060 ml -660 ml Intake Oral 240 ml 240 ml 240 ml IV Total 1200 ml 400 ml Output Urine Total 900 ml 1300 ml 1300 ml # Bowel Movements 1 Laboratory Laboratory Tests Test 04/28/18 18:59 Activated Partial Thromboplast Time 28.2 Date/Time Source Procedure Growth Status 04/27/18 01:00 Blood Peripheral Aerobic Blood Culture - Preliminary NO GROWTH IN 2 DAYS Resulted 04/27/18 01:00 Blood Peripheral Anaerobic Blood Culture - Preliminary NO GROWTH IN 2 DAYS Resulted 04/28/18 02:45 Stool Stool Cryptosporidium Exam - Final NEGATIVE - NO CRYPTOSPORIDIUM ANTIGEN... Complete 04/28/18 02:45 Stool Stool Giardia Antigen (CHITO) - Final NEGATIVE - NO GIARDIA ANTIGEN DETECTE... Complete 04/27/18 00:30 Urine Clean Catch Urine Culture - Final 50-100,000 CFU/ML MIXED GRAM POSITIVE... Complete Imaging Last Impressions Myocardial Perfusion Scan Nuc Med 04/28/18 0800 Signed Impressions: CONCLUSION: 1. No reversible perfusion defect to indicate stress-induced myocardial ischem ia is identified. Head CT 04/27/18 0010 Signed Impressions: CONCLUSION: No acute intracranial findings. Chest X-Ray 04/27/18 0010 Signed Impressions: CONCLUSION: No acute cardiopulmonary disease identified. Abdomen/Pelvis CT 04/27/18 0000 Signed Impressions: CONCLUSION: 1. Mild circumferential wall thickening, adjacent edema, and mucosal enhanceme nt of the colon at the splenic fracture and proximal descending segment. Findin gs suggest colitis. Differential diagnosis includes infection and ischemia. 2. Postsurgical findings with evidence of proximal colon resection. 3. Mild hepatic steatosis. Gallbladder not visualized. 4. Degenerative findings lumbar spine. Physical Exam HEENT: Normocephalic; atraumatic CHEST: Even/unlabored CARDIAC: RRR ABDOMEN: Obese, soft, lower abdominal tenderness, bowel sounds active EXTREMITIES: No clubbing, cyanosis, or edema. SKIN: Normal; no rash; no jaundice. 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 (Noreen aLrson) Assessment and Plan Plan Assessment: - Abdominal pain, LLQ, states pain has been constant for the past year but increasing over the past couple months, worse with bowel movements, described as aching. Also complaining of nausea with occasional emesis, but states that it is more of her spitting up. Complaining of acid reflux, states was well controlled on home medication but has been worse recently CT abdomen and pelvis W IV contrast (04/27) Mild circumferential wall thickening, adjacent edema, and mucosal enhancement of the colon at the splenic fracture and proximal descending segment. Findings suggest colitis. Differential diagnosis includes infection and ischemia. Postsurgical findings with evidence of proximal colon resection. Mild hepatic steatosis. Gallbladder not visualized. Degenerative findings lumbar spine. - Elevated troponin- pt on Heparin gtt- awaiting cardiology consult (04/29) S/P work up by cardiology, adenosine stress test with no evidence of ischemia, echo with normal LV systolic function, No evidence of ACS. Per cardiology pt cleared for GI work up, heparin gtt was discontinued. Pt still complaining of lower abdominal pain. Also still having loose stools. Stool studies positive for Campylobacter species. Negative for C. Diff Pt on appropriate treatment with Ciprofloxacin, likely the cause for colitis, no colonoscopy indicated at this time Will plan for EGD due to reports of worsening acid reflux recently not controlled with home meds. Plan: EGD tomorrow Obtain consent NPO after MN Continue Cipro Colonoscopy outpatient Further recommendations based on findings of above Pt has been seen and examined by myself and Dr. Trevino and this note is written on his behalf (Noreen Larson) Physician Comments Agree with above plan. Will proceed with EGD. Further recommendations to follow. (Janine Trevino MD) Noreen Larson Apr 29, 2018 13:37 Janine Trevino MD Apr 30, 2018 10:24
[2018-04-30] VITALS (19 sets, daily range): BP systolic 144–186; BP diastolic 68–90; PULSE 64–102; RESP 18; TEMP 98–98.1; O2SAT 96–98
[2018-04-30] MEDS: CIPROFLOXACIN 400 MG PREMIX 200 ML IV SCH ×2 (01:08→14:17)
[2018-04-30] MEDS: MORPHINE SULFATE 4 MG/ML INJ IV PUSH PRN ×6 (01:08→21:11)
[2018-04-30] MEDS: SODIUM CHLOR 0.9% 1000 ML INJ 1,000 ML IV SCH ×3 (01:20→21:20)
[2018-04-30] MEDS: metroNIDAZOLE 500 MG INJ 100 ML IV SCH ×3 (04:00→20:09)
[2018-04-30] MEDS: LORazepam 1 MG TAB PO PRN ×3 (05:22→18:00)
[2018-04-30] MEDS: cefTRIAXone INJ 1,000 MG in SODIUM CHLORIDE 0.9% INJ 100 ML IV SCH (06:00)
[2018-04-30] MEDS: SODIUM CHLORIDE 0.9% FLUSH 10 ML FLUSH IV FLUSH SCH ×2 (09:00→20:12)
--- NOTE | 2018-04-30 10:20 | HHI.PR ---
Subjective Remarks Npo for Gi scope, No CP, sob, C/O lower abdomen discomfort Objective Vital Signs Date Time Temp Pulse Resp B/P (MAP) Pulse Ox O2 Delivery O2 Flow Rate FiO2 04/30/18 10:07 98.0 84 18 148/70 (96) 96 04/30/18 08:19 82 04/30/18 07:45 71 04/30/18 02:00 64 04/30/18 01:21 18 04/30/18 01:00 82 04/30/18 00:00 80 04/30/18 00:00 86 18 98 04/29/18 21:00 100 04/29/18 19:39 79 04/29/18 19:00 81 18 161/85 (110) 97 04/29/18 19:00 88 04/29/18 18:05 85 04/29/18 17:11 77 04/29/18 16:05 78 04/29/18 15:05 98.0 92 18 148/70 (96) 98 04/29/18 15:03 90 04/29/18 14:22 83 04/29/18 13:00 80 04/29/18 12:34 74 04/29/18 11:46 97.4 64 18 157/76 (103) 04/29/18 11:29 55 I/O 04/29/18 04/29/18 04/29/18 04/30/18 04/30/18 04/30/18 07:00 15:00 23:00 07:00 15:00 23:00 Intake Total 640 ml 1300 ml 240 ml Output Total 1300 ml 4 ml Balance -660 ml 1300 ml 236 ml Intake Oral 240 ml 240 ml IV Total 400 ml 1300 ml Output Urine Total 1300 ml Stool Total 4 ml # Voids 3 # Bowel Movements 1 Result Diagram: 04/28/18 0515 04/28/18 0515 Imaging Last 72 hours Impressions Myocardial Perfusion Scan Nuc Med 04/28/18 0800 Signed Impressions: CONCLUSION: 1. No reversible perfusion defect to indicate stress-induced myocardial ischem ia is identified. Procedures Nuclear stress on 04/27/18 Upper GI 04/30/18 Objective Remarks GENERAL: Well-developed well-nourished female no acute respiratory distress SKIN: Warm and dry. HEAD: Atraumatic. Normocephalic. EYES: Pupils equal and round. No scleral icterus. No injection or drainage. ENT: No nasal bleeding or discharge. Mucous membranes pink and moist. NECK: Trachea midline. No JVD. CARDIOVASCULAR: Regular rate and rhythm. RESPIRATORY: Clear to auscultation. Breath sounds equal bilaterally, No Wheezes or Rhonchi GASTROINTESTINAL: Abdomen soft, tender, + BS MUSCULOSKELETAL: Extremities without clubbing, cyanosis, or edema. No obvious deformities. NEUROLOGICAL: Awake and alert. No obvious cranial nerve deficits. Normal speech , NIEVES PSYCHIATRIC: Appropriate mood and affect; insight and judgment normal. Medications and IVs Current Medications Medications (Trade) Dose Ordered Sig/Chica Route Start Time Stop Time Status Last Admin Ciprofloxacin/ Dextrose 200 ml @ 200 mls/hr Q12H IV 04/27/18 14:00 04/30/18 01:08 Metronidazole 100 ml @ 100 mls/hr Q8H IV 04/27/18 12:00 04/30/18 04:00 Sodium Chloride 1,000 ml @ 100 mls/hr Q10H IV 04/27/18 03:20 04/28/18 09:20 (NS Flush) 2 ml UNSCH PRN IV FLUSH 04/27/18 03:30 (NS Flush) 2 ml BID IV FLUSH 04/27/18 09:00 04/29/18 21:18 (Tylenol) 650 mg Q4H PRN PO 04/27/18 03:30 (Narcan Inj) 0.4 mg UNSCH PRN IV PUSH 04/27/18 03:30 (Ativan) 1 mg Q6H PRN PO 04/27/18 03:30 04/30/18 05:22 (Compazine Inj) 5 mg Q4H PRN IV PUSH 04/27/18 03:30 Ceftriaxone Sodium 1000 mg/ Sodium Chloride 100 ml @ 200 mls/hr Q24H IV 04/27/18 06:00 04/29/18 06:38 (Catapres) 0.1 mg Q6H PRN PO 04/27/18 11:15 04/28/18 18:15 (Morphine Inj) 2 mg Q3H PRN IV PUSH 04/27/18 18:00 04/30/18 08:51 (Norvasc) 10 mg DAILY PO 04/29/18 09:15 04/30/18 08:51 Assessment and Plan Problem List: (1) Abdominal pain ICD Codes: R10.9 - Unspecified abdominal pain Status: Acute (2) ACS (acute coronary syndrome) ICD Codes: I24.9 - Acute ischemic heart disease, unspecified Status: Acute (3) Acute colitis ICD Codes: K52.9 - Noninfective gastroenteritis and colitis, unspecified Status: Acute (4) Anxiety ICD Codes: F41.9 - Anxiety disorder, unspecified Assessment and Plan 04/27/18 Alert and oriented NPO, GI consult, for possible colitis infectious verse ischemic she has been give Flagyl, Cipro, and Rocephin, Compazine for nausea, currently comfortable. Elevated troponin, Cardiology consult, Nitro paste to chest wall. No reports of CP currently. Heparin drip 9/hr Blood culture urine culture pending. 04/28/18 No complaints this am. She is NPO for Stress test, She is on Heparin 9/ hr. B/P elevated will start amlodipine 5 mg qd as she has been on that in past. Clonidine PRN. BC negative x1 day, Urine culture pending, Stool studies pending. Per GI EGD/coloscopy once cardiac cleared. 04/29/18- Voices didn't sleep well. She tell me she is going for an upper GI today she is NPO. No order seen in chart. Stool culture show Campylobacter Species. Gi Following. No abdominal discomfort or pain currently. Heparin DC r/ t negative Stress test yesterday. BP still elevated amlodipine increased. Cont to monitor. She is having some vaginal bleeding, she has been seeing Dr Mendoza outpatient for that. She did not go to the last apt, she is not happy with her. She would like to see different MD, she will fu outpatient. 04/30/18 Npo for upper GI, VSS afebrile, Cipro for Campylobacter Species in stool. Colonoscopy not warranted in acute care, she will fu outpatient. DC home once cleared by GI Problem Qualifiers (1) Abdominal pain: Qualified Codes: R10.32 - Left lower quadrant pain Edel Mares Apr 30, 2018 10:20
--- NOTE | 2018-04-30 10:39 | GIPROC ---
[facility] [address] [facility]. [facility], [address] EGD PROCEDURE REPORT EXAM DATE: 04/30/2018 PATIENT NAME: Brandie Garcia MR #: [id number] BIRTHDATE: 1935 ATTENDING: Janine Trevino MD ORDER #: [id number] LEGAL DOCUMENT ASSISTANT: Myesha Javier and Lisandra Choudhary STATUS: inpatient INDICATIONS: The patient is a 82 yr old female here for an EGD due to nausea PROCEDURE PERFORMED: EGD w/ biopsy MEDICATIONS: None and Per Anesthesia. TOPICAL ANESTHETIC: none CONSENT: The patient understands the risks and benefits of the procedure and understands that these risks include, but are not limited to: sedation, allergic reaction, infection, perforation and/or bleeding. Alternative means of evaluation and treatment include, among others: physical exam, x-rays, and/or surgical intervention. The patient elects to proceed with this endoscopic procedure. medical equipment was checked for proper function. Hand hygiene and appropriate measures for infection prevention was taken. After the risks, benefits and alternatives of the procedure were thoroughly explained, Informed consent was verified, confirmed and timeout was successfully executed by the treatment team. The patient was anesthetized with topical anesthesia and the [id number] endoscope was introduced through the mouth and advanced to the second portion of the duodenum. Retroflexed views revealed no abnormalities The gastroscope was then slowly withdrawn and removed. ESOPHAGUS: There was LA Class B esophagitis noted. STOMACH: There was mild gastritis in the gastric antrum. Multiple biopsies were performed using cold forceps. Sample sent for histology. DUODENUM: Two small non-bleeding non-bleeding, round and clean-based ulcers were found in the duodenal bulb. Moderate duodenal inflammation was found in the 2nd part of the duodenum and 3rd part duodenum. ADVERSE EVENTS: There were no complications. IMPRESSIONS: 1. There was LA Class B esophagitis noted 2. There was mild gastritis in the gastric antrum; multiple biopsies were performed 3. Two small non-bleeding ulcers were found in the duodenal bulb 4. Duodenal inflammation was found in the 2nd part of the duodenum and 3rd part duodenum 5. Retroflexed views revealed no abnormalities RECOMMENDATIONS: 1. Await biopsy results. Biopsy results will not be ready for 7-10 days. If you don't hear from us in two weeks, call our office for biopsy results. 2. Continue PPI PATIENT CONDITION: stable DISPOSITION: Observation REPEAT EXAM: NONE Janine Trevino MD eSigned: Janine Trevino MD 04/30/2018 10:39 AM cc: PATIENT NAME: Brandie Garcia MR#: [id number]
[2018-04-30] MEDS ORDERED: DO NOT ADM ANY ANTICOAGULANT DRUGS PRN (11:45)
[2018-04-30] MEDS ORDERED: PROPOFOL 200 MG/20 ML AMP IV ONE (12:00)
--- NOTE | 2018-04-30 14:43 | RADRPT ---
EXAM DATE: 04/30/2018 2:01 PM EDT AGE/SEX: 82 years / Female INDICATIONS: Pain. No known injury or fall. CLINICAL DATA: This is the patient's initial encounter. Patient reports that signs and symptoms have been present for 1 day and indicates a pain score of 8/10. MEDICAL/SURGICAL HISTORY: . Hypertension. Carcinoma, breast . Lumpectomy COMPARISON: No prior exams available for comparison. FINDINGS: Changes AC joint. Anatomic alignment. Fracture not appreciated. Lung apex clear. CONCLUSION: AC joint degenerative changes otherwise negative Electronically signed by: Josh Yanez MD 04/30/2018 2:42 PM EDT
--- NOTE | 2018-04-30 16:01 | PD.CARD.PN ---
Subjective Subjective Remarks NO CP or SOB, feels better Objective Medications Current Medications Medications (Trade) Dose Ordered Sig/Chica Route Start Time Stop Time Status Last Admin Ciprofloxacin/ Dextrose 200 ml @ 200 mls/hr Q12H IV 04/27/18 14:00 04/30/18 14:17 Metronidazole 100 ml @ 100 mls/hr Q8H IV 04/27/18 12:00 04/30/18 11:48 Sodium Chloride 1,000 ml @ 100 mls/hr Q10H IV 04/27/18 03:20 04/28/18 09:20 (NS Flush) 2 ml UNSCH PRN IV FLUSH 04/27/18 03:30 (NS Flush) 2 ml BID IV FLUSH 04/27/18 09:00 04/29/18 21:18 (Tylenol) 650 mg Q4H PRN PO 04/27/18 03:30 (Narcan Inj) 0.4 mg UNSCH PRN IV PUSH 04/27/18 03:30 (Ativan) 1 mg Q6H PRN PO 04/27/18 03:30 04/30/18 12:51 (Compazine Inj) 5 mg Q4H PRN IV PUSH 04/27/18 03:30 Ceftriaxone Sodium 1000 mg/ Sodium Chloride 100 ml @ 200 mls/hr Q24H IV 04/27/18 06:00 04/29/18 06:38 (Catapres) 0.1 mg Q6H PRN PO 04/27/18 11:15 04/28/18 18:15 (Morphine Inj) 2 mg Q3H PRN IV PUSH 04/27/18 18:00 04/30/18 15:01 (Norvasc) 10 mg DAILY PO 04/29/18 09:15 04/30/18 08:51 ([facility] Nursing Information) ALL NURSING DEPARTME... UNSCH PRN .XX 04/30/18 11:45 05/01/18 11:44 Vital Signs / I&O Vital Signs Date Time Temp Pulse Resp B/P (MAP) Pulse Ox O2 Delivery O2 Flow Rate FiO2 04/30/18 15:12 78 04/30/18 15:12 98.0 78 18 144/68 (93) 97 04/30/18 13:53 97 04/30/18 13:04 84 6/15/18 12:40 95 04/30/18 12:40 144/74 (97) 04/30/18 11:32 88 04/30/18 10:44 98.6 75 18 161/72 (101) 97 04/30/18 10:07 98.0 84 18 148/70 (96) 96 04/30/18 08:19 82 04/30/18 07:45 71 04/30/18 02:00 64 04/30/18 01:21 18 04/30/18 01:00 82 04/30/18 00:00 80 04/30/18 00:00 86 18 98 04/29/18 21:00 100 04/29/18 19:39 79 04/29/18 19:00 81 18 161/85 (110) 97 04/29/18 19:00 88 04/29/18 18:05 85 04/29/18 17:11 77 04/29/18 16:05 78 I/O 04/29/18 04/29/18 04/29/18 04/30/18 04/30/18 04/30/18 07:00 15:00 23:00 07:00 15:00 23:00 Intake Total 640 ml 1300 ml 240 ml 100 ml Output Total 1300 ml 4 ml Balance -660 ml 1300 ml 236 ml 100 ml Intake Oral 240 ml 240 ml IV Total 400 ml 1300 ml Other 100 ml Output Urine Total 1300 ml Stool Total 4 ml # Voids 3 # Bowel Movements 1 Physical Exam GENERAL: In NAD. SKIN: Warm and dry. HEAD: Normocephalic. EYES: No scleral icterus. No injection or drainage. NECK: Supple, trachea midline. No JVD or lymphadenopathy. CARDIOVASCULAR: Regular rate and rhythm without murmurs, gallops, or rubs. RESPIRATORY: Breath sounds equal bilaterally. No accessory muscle use. GASTROINTESTINAL: Abdomen soft, non-tender, nondistended. MUSCULOSKELETAL: No cyanosis, or edema. Imaging Last 24 hours Impressions Shoulder X-Ray 04/30/18 0000 Signed Impressions: CONCLUSION: AC joint degenerative changes otherwise negative Assessment and Plan Problem List: (1) Abdominal pain ICD Codes: R10.9 - Unspecified abdominal pain Status: Acute (2) Elevated troponin level ICD Codes: R74.8 - Abnormal levels of other serum enzymes (3) Dyslipidemia ICD Codes: E78.5 - Hyperlipidemia, unspecified (4) HTN (hypertension) ICD Codes: I10 - Essential (primary) hypertension Assessment and Plan Remains stable from cardiac standpoint. Adenosine stress test with no evidence of ischemia. Echo with nl LV systolic function. Mild troponin elevation, but no evidence of ACS. EGD showed duodenal ulcers and gastritis. Continue current program. Increase activity, PT. Problem Qualifiers (1) Abdominal pain: Qualified Codes: R10.32 - Left lower quadrant pain Leann Hill MD Apr 30, 2018 16:01
[2018-04-30] MEDS: cloNIDine HCL 0.1 MG TAB PO PRN (20:23)
[2018-05-01] VITALS (24 sets, daily range): BP systolic 138–171; BP diastolic 68–95; PULSE 70–110; RESP 18–22; TEMP 98–98.9; O2SAT 94–96
[2018-05-01] MEDS: MORPHINE SULFATE 4 MG/ML INJ IV PUSH PRN ×8 (00:01→23:08)
[2018-05-01] MEDS: LORazepam 1 MG TAB PO PRN ×4 (00:01→20:09)
[2018-05-01] MEDS: CIPROFLOXACIN 400 MG PREMIX 200 ML IV SCH ×2 (02:35→14:35)
[2018-05-01] MEDS: metroNIDAZOLE 500 MG INJ 100 ML IV SCH ×3 (04:00→20:10)
[2018-05-01] MEDS: cefTRIAXone INJ 1,000 MG in SODIUM CHLORIDE 0.9% INJ 100 ML IV SCH (06:17)
[2018-05-01] MEDS: SODIUM CHLOR 0.9% 1000 ML INJ 1,000 ML IV SCH ×2 (07:20→16:47)
[2018-05-01] MEDS: SODIUM CHLORIDE 0.9% FLUSH 10 ML FLUSH IV FLUSH SCH ×2 (08:35→21:00)
--- NOTE | 2018-05-01 11:45 | HHI.PR ---
Subjective Remarks Patient presented with GI pain and was found to have esophagitis, gastritis and duodenitis. GI following and adjusting meds. Objective Vital Signs Date Time Temp Pulse Resp B/P (MAP) Pulse Ox O2 Delivery O2 Flow Rate FiO2 05/01/18 07:00 86 05/01/18 07:00 98.7 84 20 165/95 (118) 94 05/01/18 06:00 70 05/01/18 05:19 81 05/01/18 04:12 98.2 78 20 153/79 (103) 95 05/01/18 04:12 72 05/01/18 03:00 87 05/01/18 02:00 80 05/01/18 01:00 80 05/01/18 00:00 74 05/01/18 00:00 98.0 79 20 138/68 (91) 96 04/30/18 23:00 74 04/30/18 22:00 80 04/30/18 21:00 96 04/30/18 20:00 98.1 91 18 186/90 (122) 96 04/30/18 20:00 102 04/30/18 19:00 91 04/30/18 18:06 84 04/30/18 17:05 84 04/30/18 16:23 78 04/30/18 15:12 78 04/30/18 15:12 98.0 78 18 144/68 (93) 97 04/30/18 13:53 97 04/30/18 13:04 84 04/30/18 12:40 95 04/30/18 12:40 144/74 (97) I/O 04/30/18 04/30/18 04/30/18 05/01/18 05/01/18 05/01/18 07:00 15:00 23:00 07:00 15:00 23:00 Intake Total 240 ml 100 ml 800 ml 240 ml Output Total 4 ml Balance 236 ml 100 ml 800 ml 240 ml Intake Oral 240 ml 500 ml 240 ml IV Total 300 ml Other 100 ml Stool Total 4 ml # Voids 2 # Bowel Movements 1 Result Diagram: 04/28/18 0515 04/28/18 0515 Imaging Last Impressions Shoulder X-Ray 04/30/18 0000 Signed Impressions: CONCLUSION: AC joint degenerative changes otherwise negative Myocardial Perfusion Scan Nuc Med 04/28/18 0800 Signed Impressions: CONCLUSION: 1. No reversible perfusion defect to indicate stress-induced myocardial ischem ia is identified. Head CT 04/27/18 0010 Signed Impressions: CONCLUSION: No acute intracranial findings. Chest X-Ray 04/27/18 0010 Signed Impressions: CONCLUSION: No acute cardiopulmonary disease identified. Abdomen/Pelvis CT 04/27/18 0000 Signed Impressions: CONCLUSION: 1. Mild circumferential wall thickening, adjacent edema, and mucosal enhanceme nt of the colon at the splenic fracture and proximal descending segment. Findin gs suggest colitis. Differential diagnosis includes infection and ischemia. 2. Postsurgical findings with evidence of proximal colon resection. 3. Mild hepatic steatosis. Gallbladder not visualized. 4. Degenerative findings lumbar spine. Procedures Nuclear stress on 04/27/18 Upper GI 04/30/18 Objective Remarks GENERAL: Awake, alert and without complaints SKIN: Warm and dry. HEAD: Normocephalic. EYES: No scleral icterus. No injection or drainage. NECK: Supple, trachea midline. No JVD or lymphadenopathy. CARDIOVASCULAR: Regular rate and rhythm without murmurs, gallops, or rubs. RESPIRATORY: Breath sounds equal bilaterally. No accessory muscle use. GASTROINTESTINAL: Abdomen soft, non-tender, nondistended. MUSCULOSKELETAL: No cyanosis, or edema. BACK: Nontender without obvious deformity. No CVA tenderness. Medications and IVs Current Medications Medications (Trade) Dose Ordered Sig/Chica Route Start Time Stop Time Status Last Admin Ciprofloxacin/ Dextrose 200 ml @ 200 mls/hr Q12H IV 04/27/18 14:00 05/01/18 02:35 Metronidazole 100 ml @ 100 mls/hr Q8H IV 04/27/18 12:00 05/01/18 04:00 Sodium Chloride 1,000 ml @ 100 mls/hr Q10H IV 04/27/18 03:20 05/01/18 07:20 (NS Flush) 2 ml UNSCH PRN IV FLUSH 04/27/18 03:30 (NS Flush) 2 ml BID IV FLUSH 04/27/18 09:00 05/01/18 08:35 (Tylenol) 650 mg Q4H PRN PO 04/27/18 03:30 (Narcan Inj) 0.4 mg UNSCH PRN IV PUSH 04/27/18 03:30 (Ativan) 1 mg Q6H PRN PO 04/27/18 03:30 05/01/18 08:34 (Compazine Inj) 5 mg Q4H PRN IV PUSH 04/27/18 03:30 Ceftriaxone Sodium 1000 mg/ Sodium Chloride 100 ml @ 200 mls/hr Q24H IV 04/27/18 06:00 05/01/18 06:17 (Catapres) 0.1 mg Q6H PRN PO 04/27/18 11:15 04/30/18 20:23 (Morphine Inj) 2 mg Q3H PRN IV PUSH 04/27/18 18:00 05/01/18 10:21 (Norvasc) 10 mg DAILY PO 04/29/18 09:15 05/01/18 08:34 ([facility] [place] ALL NURSING DEPARTME... UNSCH PRN .XX 04/30/18 11:45 05/01/18 11:44 Assessment and Plan Problem List: (1) Abdominal pain ICD Codes: R10.9 - Unspecified abdominal pain Status: Acute Plan: GI following and adjusting meds. (2) ACS (acute coronary syndrome) ICD Codes: I24.9 - Acute ischemic heart disease, unspecified Status: Acute Plan: Cards W/U negative so far. (3) HTN (hypertension) ICD Codes: I10 - Essential (primary) hypertension Status: Chronic Plan: controlled on current regimen (4) Anxiety ICD Codes: F41.9 - Anxiety disorder, unspecified Status: Chronic Plan: Monitor an adjust meds as needed Assessment and Plan Stress negative for acute cardiac problems. GI W/U with esophagitis, gastritis and duodenitis. 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
--- NOTE | 2018-05-01 12:52 | HHI.GIFU ---
Subjective Remarks Awake alert resting in the bed appetite is showing gradual improvement Nausea and vomiting improved none noted today Lower abdominal pain with occasional cramping especially in left lower quadrant but improving Afebrile (Nishi Elise) Objective Vitals I&O Vital Signs Date Time Temp Pulse Resp B/P (MAP) Pulse Ox O2 Delivery O2 Flow Rate FiO2 05/01/18 12:00 82 05/01/18 11:00 98.1 87 22 160/68 (98) 96 05/01/18 11:00 80 05/01/18 10:00 110 05/01/18 09:00 84 05/01/18 08:00 98 05/01/18 07:00 86 05/01/18 07:00 98.7 84 20 165/95 (118) 94 05/01/18 06:00 70 05/01/18 05:19 81 05/01/18 04:12 98.2 78 20 153/79 (103) 95 05/01/18 04:12 72 05/01/18 03:00 87 05/01/18 02:00 80 05/01/18 01:00 80 05/01/18 00:00 74 05/01/18 00:00 98.0 79 20 138/68 (91) 96 04/30/18 23:00 74 04/30/18 22:00 80 04/30/18 21:00 96 04/30/18 20:00 98.1 91 18 186/90 (122) 96 04/30/18 20:00 102 04/30/18 19:00 91 04/30/18 18:06 84 04/30/18 17:05 84 04/30/18 16:23 78 04/30/18 15:12 78 04/30/18 15:12 98.0 78 18 144/68 (93) 97 04/30/18 13:53 97 04/30/18 13:04 84 I/O 04/30/18 04/30/18 04/30/18 05/01/18 05/01/18 05/01/18 07:00 15:00 23:00 07:00 15:00 23:00 Intake Total 240 ml 100 ml 800 ml 240 ml Output Total 4 ml Balance 236 ml 100 ml 800 ml 240 ml Intake Oral 240 ml 500 ml 240 ml IV Total 300 ml Other 100 ml Stool Total 4 ml # Voids 2 # Bowel Movements 1 Laboratory Date/Time Source Procedure Growth Status 04/27/18 01:00 Blood Peripheral Aerobic Blood Culture - Preliminary NO GROWTH IN 4 DAYS Resulted 04/27/18 01:00 Blood Peripheral Anaerobic Blood Culture - Preliminary NO GROWTH IN 4 DAYS Resulted 04/28/18 02:45 Stool Stool Cryptosporidium Exam - Final NEGATIVE - NO CRYPTOSPORIDIUM ANTIGEN... Complete 04/28/18 02:45 Stool Stool Giardia Antigen ([facility]) - Final NEGATIVE - NO GIARDIA ANTIGEN DETECTE... Complete 04/27/18 00:30 Urine Clean Catch Urine Culture - Final 50-100,000 CFU/ML MIXED GRAM POSITIVE... Complete Imaging Last Impressions Shoulder X-Ray 04/30/18 0000 Signed Impressions: CONCLUSION: AC joint degenerative changes otherwise negative Myocardial Perfusion Scan Nuc Med 04/28/18 0800 Signed Impressions: CONCLUSION: 1. No reversible perfusion defect to indicate stress-induced myocardial ischem ia is identified. Head CT 04/27/18 0010 Signed Impressions: CONCLUSION: No acute intracranial findings. Chest X-Ray 04/27/18 0010 Signed Impressions: CONCLUSION: No acute cardiopulmonary disease identified. Abdomen/Pelvis CT 04/27/18 0000 Signed Impressions: CONCLUSION: 1. Mild circumferential wall thickening, adjacent edema, and mucosal enhanceme nt of the colon at the splenic fracture and proximal descending segment. Findin gs suggest colitis. Differential diagnosis includes infection and ischemia. 2. Postsurgical findings with evidence of proximal colon resection. 3. Mild hepatic steatosis. Gallbladder not visualized. 4. Degenerative findings lumbar spine. Physical Exam HEENT: Normocephalic; atraumatic, eating and swallowing without cough CHEST: Breath sounds mild diminished but no obvious rhonchi CARDIAC: RRR ABDOMEN: Round, obese, soft, lower abdominal tenderness with special attention to left lower quadrant, bowel sounds active EXTREMITIES: No clubbing, cyanosis, or edema. SKIN: no rash; no jaundice. COOK LARDER: Alert and oriented times three. (Nishi Elise) Assessment and Plan Plan Assessment: - Abdominal pain, LLQ, states pain has been constant for the past year but increasing over the past couple months, worse with bowel movements, described as aching. Also complaining of nausea with occasional emesis, but states that it is more of her spitting up. Complaining of acid reflux, states was well controlled on home medication but has been worse recently CT abdomen and pelvis W IV contrast (04/27) Mild circumferential wall thickening, adjacent edema, and mucosal enhancement of the colon at the splenic fracture and proximal descending segment. Findings suggest colitis. Differential diagnosis includes infection and ischemia. Postsurgical findings with evidence of proximal colon resection. Mild hepatic steatosis. Gallbladder not visualized. Degenerative findings lumbar spine. - Elevated troponin- pt on Heparin gtt- awaiting cardiology consult (04/29) S/P work up by cardiology, adenosine stress test with no evidence of ischemia, echo with normal LV systolic function, No evidence of ACS. Per cardiology pt cleared for GI work up, heparin gtt was discontinued. Pt still complaining of lower abdominal pain. Also still having loose stools. Stool studies positive for Campylobacter species. Negative for C. Diff Pt on appropriate treatment with Ciprofloxacin, likely the cause for colitis, no colonoscopy indicated at this time Will plan for EGD due to reports of worsening acid reflux recently not controlled with home meds. 05/01/2018, current hemoglobin 12.8. Negative C. difficile. Patient states mild nausea yesterday but improved today and no vomiting. She is tolerating solid food and denies any obvious bleeding or dyspepsia. Upper GI symptoms improved with PPI. Patient denies any constipation but does note history of loose stools. Currently being treated for colitis with Cipro, Flagyl, and Rocephin, gradual improvement lower GI symptoms noted but still feels weak and today. Patient is status post EGD from 04/30/2018. Findings include LA class B esophagitis with mild gastritis in the gastric antrum. Multiple biopsies done. 2 small nonbleeding ulcers found in the duodenal bulb with duodenal inflammation in the second part and third part, retroflex views normal Plan: Diet, heart healthy Increased activity today, up in chair if possible Biopsies pending from EGD can follow-up in the office outpatient for results PPI Cipro, Flagyl, Rocephin, Bowel regimen Antiemetics as needed Colonoscopy outpatient recommendation after treatment of colitis. Pt has been seen and examined by myself and Dr. Trevino and this note is written on his behalf (Nishi Elise) Physician Comments As above, will need out patient follow up. Will sign off for now, please notify us if needed again. (Janine Trevino MD) Nishi Elise May 01, 2018 12:52 Janine Trevino MD May 01, 2018 14:20
[2018-05-02] VITALS (30 sets, daily range): BP systolic 127–192; BP diastolic 60–81; PULSE 74–100; RESP 16–22; TEMP 97.5–98.9; O2SAT 93–95
[2018-05-02] MEDS: CIPROFLOXACIN 400 MG PREMIX 200 ML IV SCH ×2 (02:00→14:50)
[2018-05-02] MEDS: LORazepam 1 MG TAB PO PRN ×4 (02:32→21:11)
[2018-05-02] MEDS: MORPHINE SULFATE 4 MG/ML INJ IV PUSH PRN ×6 (02:33→23:16)
[2018-05-02] MEDS: SODIUM CHLOR 0.9% 1000 ML INJ 1,000 ML IV SCH ×3 (03:20→23:14)
[2018-05-02] MEDS: metroNIDAZOLE 500 MG INJ 100 ML IV SCH ×3 (04:03→20:03)
[2018-05-02] MEDS: cefTRIAXone INJ 1,000 MG in SODIUM CHLORIDE 0.9% INJ 100 ML IV SCH (05:23)
[2018-05-02] MEDS: SODIUM CHLORIDE 0.9% FLUSH 10 ML FLUSH IV FLUSH SCH ×2 (09:00→20:05)
[2018-05-02] MEDS ORDERED: traMADol HCL 50 MG TAB PO PRN (09:45)
[2018-05-02] MEDS ORDERED: INFLUENZA VIRUS VACCINE (QUADRIVALENT) 0.5 ML SYR IM ONE (10:00)
[2018-05-02] MEDS: cloNIDine HCL 0.1 MG TAB PO PRN (11:28)
--- NOTE | 2018-05-02 11:43 | HHI.PR ---
Subjective Remarks Patient presented with GI pain and was found to have esophagitis, gastritis and duodenitis. GI following and adjusting meds. Today she C/O neck pain and K Pad was ordered. She remains on IV morphine and wanted to try PO Tramadol which I ordered to try. Objective Vital Signs Date Time Temp Pulse Resp B/P (MAP) Pulse Ox O2 Delivery O2 Flow Rate FiO2 05/02/18 11:21 20 05/02/18 11:00 96 05/02/18 11:00 98.3 86 20 174/69 (104) 94 05/02/18 10:00 94 05/02/18 09:00 100 05/02/18 08:00 78 05/02/18 07:00 81 05/02/18 07:00 97.5 87 22 171/81 (111) 94 05/02/18 06:00 77 05/02/18 05:00 96 05/02/18 04:09 98.8 84 18 160/75 (103) 94 05/02/18 04:00 76 05/02/18 03:00 83 05/02/18 02:00 86 05/02/18 01:00 81 05/02/18 00:00 98.6 84 18 170/70 (103) 94 05/02/18 00:00 83 05/01/18 23:00 88 05/01/18 22:00 84 05/01/18 21:00 82 05/01/18 20:00 89 05/01/18 20:00 98.9 89 18 171/80 (110) 96 05/01/18 19:00 90 05/01/18 18:00 92 05/01/18 17:00 82 05/01/18 16:00 84 05/01/18 15:00 85 05/01/18 15:00 98.6 87 20 160/70 (100) 95 05/01/18 14:00 86 05/01/18 13:00 100 05/01/18 12:00 82 I/O 05/01/18 05/01/18 05/01/18 05/02/18 05/02/18 05/02/18 07:00 15:00 23:00 07:00 15:00 23:00 Intake Total 240 ml 700 ml 2206 ml Output Total 600 ml Balance 240 ml 100 ml 2206 ml Intake Oral 240 ml 700 ml 240 ml IV Total 1966 ml Output Urine Total 600 ml # Voids 2 3 # Bowel Movements 3 1 Result Diagram: 04/28/18 0515 04/28/18 0515 Procedures Nuclear stress on 04/27/18 Upper GI 04/30/18 Objective Remarks GENERAL: Awake, alert and complaint or left neck and LLQ abd discomfort SKIN: Warm and dry. HEAD: Normocephalic. EYES: No scleral icterus. No injection or drainage. NECK: C/O discomfort with movement, trachea midline. No JVD or lymphadenopathy. CARDIOVASCULAR: Regular rate and rhythm without murmurs, gallops, or rubs. RESPIRATORY: Breath sounds equal bilaterally. No accessory muscle use. GASTROINTESTINAL: Abdomen soft, LLQ abd discomfort, nondistended. MUSCULOSKELETAL: No cyanosis, or edema. BACK: Nontender without obvious deformity. No CVA tenderness. Medications and IVs Current Medications Medications (Trade) Dose Ordered Sig/Chica Route Start Time Stop Time Status Last Admin Ciprofloxacin/ Dextrose 200 ml @ 200 mls/hr Q12H IV 04/27/18 14:00 05/02/18 02:00 Metronidazole 100 ml @ 100 mls/hr Q8H IV 04/27/18 12:00 05/02/18 04:03 Sodium Chloride 1,000 ml @ 100 mls/hr Q10H IV 04/27/18 03:20 05/02/18 03:20 (NS Flush) 2 ml UNSCH PRN IV FLUSH 04/27/18 03:30 (NS Flush) 2 ml BID IV FLUSH 04/27/18 09:00 05/01/18 08:35 (Tylenol) 650 mg Q4H PRN PO 04/27/18 03:30 (Narcan Inj) 0.4 mg UNSCH PRN IV PUSH 04/27/18 03:30 (Ativan) 1 mg Q6H PRN PO 04/27/18 03:30 05/02/18 09:07 (Compazine Inj) 5 mg Q4H PRN IV PUSH 04/27/18 03:30 Ceftriaxone Sodium 1000 mg/ Sodium Chloride 100 ml @ 200 mls/hr Q24H IV 04/27/18 06:00 05/02/18 05:23 (Catapres) 0.1 mg Q6H PRN PO 04/27/18 11:15 05/02/18 11:28 (Morphine Inj) 2 mg Q3H PRN IV PUSH 04/27/18 18:00 05/02/18 10:11 (Norvasc) 10 mg DAILY PO 04/29/18 09:15 05/02/18 09:07 (Ultram) 100 mg Q8H PRN PO 05/02/18 09:45 Assessment and Plan Problem List: (1) Abdominal pain ICD Codes: R10.9 - Unspecified abdominal pain Status: Acute Plan: GI following and adjusting meds. (2) ACS (acute coronary syndrome) ICD Codes: I24.9 - Acute ischemic heart disease, unspecified Status: Acute Plan: Cards W/U negative so far. (3) HTN (hypertension) ICD Codes: I10 - Essential (primary) hypertension Status: Chronic Plan: controlled on current regimen (4) Anxiety ICD Codes: F41.9 - Anxiety disorder, unspecified Status: Chronic Plan: Monitor an adjust meds as needed (5) Cephalgia ICD Codes: R51 - Headache Status: Acute Plan: K Pad ordered Assessment and Plan Stress negative for acute cardiac problems. GI W/U with esophagitis, gastritis and duodenitis. had neck pain today and a heating pad was ordered. 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
[2018-05-02] MEDS: ACETAMINOPHEN/CODEINE 300 MG/30 MG TAB PO PRN (16:11)
[2018-05-02] MEDS ORDERED: cloNIDine HCL 0.1 MG TAB PO PRN (16:15)
[2018-05-02] MEDS ORDERED: LISINOPRIL 10 MG TAB PO ONE (16:15)
[2018-05-03] VITALS (28 sets, daily range): BP systolic 140–163; BP diastolic 60–78; PULSE 68–105; RESP 16–18; TEMP 98.3–99.1; O2SAT 93–95
[2018-05-03] MEDS: MORPHINE SULFATE 4 MG/ML INJ IV PUSH PRN ×3 (01:58→08:56)
[2018-05-03] MEDS: CIPROFLOXACIN 400 MG PREMIX 200 ML IV SCH ×2 (02:00→13:41)
[2018-05-03] MEDS: LORazepam 1 MG TAB PO PRN ×3 (03:28→17:30)
[2018-05-03] MEDS: metroNIDAZOLE 500 MG INJ 100 ML IV SCH ×3 (03:28→20:04)
[2018-05-03] MEDS: cefTRIAXone INJ 1,000 MG in SODIUM CHLORIDE 0.9% INJ 100 ML IV SCH (05:37)
[2018-05-03] MEDS: LISINOPRIL 10 MG TAB PO SCH ×2 (05:46→17:30)
[2018-05-03 07:22] LABS: HEMATOCRIT 33.4 % (35.0-46.0); HEMOGLOBIN 11.2 GM/DL (11.6-15.3); MEAN CELL VOLUME 95.1 FL (80.0-100.0); MEAN CORPUSCULAR HGB CONC 33.6 % (32.0-36.0); MEAN PLATELET VOLUME 10.1 FL (7.0-11.0); PLATELET COUNT 200 TH/MM3 (150-450); RED BLOOD COUNT 3.51 MIL/MM3 (4.00-5.30); RED CELL DISTRIBUTION WIDTH 13.4 % (11.6-17.2); WHITE BLOOD COUNT 11.1 TH/MM3 (4.0-11.0)
[2018-05-03] MEDS: SODIUM CHLORIDE 0.9% FLUSH 10 ML FLUSH IV FLUSH SCH ×2 (08:14→21:00)
--- NOTE | 2018-05-03 09:20 | HHI.PR ---
Subjective Remarks No CP, sob, C/O lower abdomen discomfort Objective Vital Signs Date Time Temp Pulse Resp B/P (MAP) Pulse Ox O2 Delivery O2 Flow Rate FiO2 05/03/18 07:49 94 21 05/03/18 06:00 76 05/03/18 05:00 68 05/03/18 04:00 78 05/03/18 03:30 79 16 140/60 (86) 94 05/03/18 03:00 72 05/03/18 02:00 86 05/03/18 01:00 80 05/03/18 00:00 80 05/02/18 23:15 80 16 150/64 (92) 95 05/02/18 23:00 79 05/02/18 22:00 78 05/02/18 21:00 78 05/02/18 20:00 84 05/02/18 19:54 95 21 05/02/18 19:40 98.9 94 18 127/60 (82) 93 05/02/18 19:00 90 05/02/18 18:00 92 05/02/18 17:30 18 05/02/18 17:00 76 05/02/18 16:00 78 05/02/18 15:10 192/71 (111) 05/02/18 15:00 98.9 88 22 177/71 (106) 94 05/02/18 15:00 82 05/02/18 14:00 74 05/02/18 13:59 95 21 05/02/18 13:00 84 05/02/18 12:00 92 05/02/18 11:21 20 05/02/18 11:00 96 05/02/18 11:00 98.3 86 20 174/69 (104) 94 05/02/18 10:00 94 I/O 05/02/18 05/02/18 05/02/18 05/03/18 05/03/18 05/03/18 07:00 15:00 23:00 07:00 15:00 23:00 Intake Total 2206 ml 700 ml 1780 ml Output Total 400 ml 450 ml Balance 2206 ml 300 ml 1330 ml Intake Oral 240 ml 600 ml 480 ml IV Total 1966 ml 100 ml 1300 ml Output Urine Total 400 ml 450 ml # Voids 3 1 # Bowel Movements 1 1 1 Result Diagram: 05/03/18 0451 Imaging Last Impressions Shoulder X-Ray 04/30/18 0000 Signed Impressions: CONCLUSION: AC joint degenerative changes otherwise negative Myocardial Perfusion Scan Nuc Med 04/28/18 0800 Signed Impressions: CONCLUSION: 1. No reversible perfusion defect to indicate stress-induced myocardial ischem ia is identified. Head CT 04/27/18 0010 Signed Impressions: CONCLUSION: No acute intracranial findings. Chest X-Ray 04/27/18 0010 Signed Impressions: CONCLUSION: No acute cardiopulmonary disease identified. Abdomen/Pelvis CT 04/27/18 0000 Signed Impressions: CONCLUSION: 1. Mild circumferential wall thickening, adjacent edema, and mucosal enhanceme nt of the colon at the splenic fracture and proximal descending segment. Findin gs suggest colitis. Differential diagnosis includes infection and ischemia. 2. Postsurgical findings with evidence of proximal colon resection. 3. Mild hepatic steatosis. Gallbladder not visualized. 4. Degenerative findings lumbar spine. Procedures Nuclear stress on 04/27/18 Upper GI 04/30/18 Objective Remarks GENERAL: Well-developed well-nourished female no acute respiratory distress SKIN: Warm and dry. HEAD: Atraumatic. Normocephalic. EYES: Pupils equal and round. No scleral icterus. No injection or drainage. ENT: No nasal bleeding or discharge. Mucous membranes pink and moist. NECK: Trachea midline. No JVD. CARDIOVASCULAR: Regular rate and rhythm. RESPIRATORY: Clear to auscultation. Breath sounds equal bilaterally, No Wheezes or Rhonchi GASTROINTESTINAL: Abdomen soft, tender, + BS MUSCULOSKELETAL: Extremities without clubbing, cyanosis, or edema. No obvious deformities. NEUROLOGICAL: Awake and alert. No obvious cranial nerve deficits. Normal speech , NIEVES PSYCHIATRIC: Appropriate mood and affect; insight and judgment normal. Medications and IVs Current Medications Medications (Trade) Dose Ordered Sig/Chica Route Start Time Stop Time Status Last Admin Ciprofloxacin/ Dextrose 200 ml @ 200 mls/hr Q12H IV 04/27/18 14:00 05/03/18 02:00 Metronidazole 100 ml @ 100 mls/hr Q8H IV 04/27/18 12:00 05/03/18 03:28 Sodium Chloride 1,000 ml @ 100 mls/hr Q10H IV 04/27/18 03:20 05/02/18 23:14 (NS Flush) 2 ml UNSCH PRN IV FLUSH 04/27/18 03:30 (NS Flush) 2 ml BID IV FLUSH 04/27/18 09:00 05/03/18 08:14 (Tylenol) 650 mg Q4H PRN PO 04/27/18 03:30 (Narcan Inj) 0.4 mg UNSCH PRN IV PUSH 04/27/18 03:30 (Ativan) 1 mg Q6H PRN PO 04/27/18 03:30 05/03/18 03:28 (Compazine Inj) 5 mg Q4H PRN IV PUSH 04/27/18 03:30 Ceftriaxone Sodium 1000 mg/ Sodium Chloride 100 ml @ 200 mls/hr Q24H IV 04/27/18 06:00 05/03/18 05:37 (Morphine Inj) 2 mg Q3H PRN IV PUSH 04/27/18 18:00 05/03/18 08:56 (Norvasc) 10 mg DAILY PO 04/29/18 09:15 05/03/18 08:14 (Tylenol-Codeine #3) 1 tab Q4H PRN PO 05/02/18 16:15 05/02/18 16:11 (Prinivil) 10 mg Q12H PO 05/03/18 06:00 05/03/18 05:46 (Catapres) 0.1 mg Q2H PRN PO 05/02/18 16:15 Assessment and Plan Problem List: (1) Abdominal pain ICD Codes: R10.9 - Unspecified abdominal pain Status: Acute (2) ACS (acute coronary syndrome) ICD Codes: I24.9 - Acute ischemic heart disease, unspecified Status: Acute (3) Acute colitis ICD Codes: K52.9 - Noninfective gastroenteritis and colitis, unspecified Status: Acute (4) Anxiety ICD Codes: F41.9 - Anxiety disorder, unspecified Status: Chronic Assessment and Plan 04/27/18 Alert and oriented NPO, GI consult, for possible colitis infectious verse ischemic she has been give Flagyl, Cipro, and Rocephin, Compazine for nausea, currently comfortable. Elevated troponin, Cardiology consult, Nitro paste to chest wall. No reports of CP currently. Heparin drip 9/hr Blood culture urine culture pending. 04/28/18 No complaints this am. She is NPO for Stress test, She is on Heparin 9/ hr. B/P elevated will start amlodipine 5 mg qd as she has been on that in past. Clonidine PRN. BC negative x1 day, Urine culture pending, Stool studies pending. Per GI EGD/coloscopy once cardiac cleared. 04/29/18- Voices didn't sleep well. She tell me she is going for an upper GI today she is NPO. No order seen in chart. Stool culture show Campylobacter Species. Gi Following. No abdominal discomfort or pain currently. Heparin DC r/ t negative Stress test yesterday. BP still elevated amlodipine increased. Cont to monitor. She is having some vaginal bleeding, she has been seeing Dr Mendoza outpatient for that. She did not go to the last apt, she is not happy with her. She would like to see different MD, she will fu outpatient. 04/30/18 Npo for upper GI, VSS afebrile, Cipro for Campylobacter Species in stool. Colonoscopy not warranted in acute care, she will fu outpatient. DC home once cleared by GI 05/03/18- VSS afebrile, she still has some mild LLQ discomfort, she is being treated for colitis, Will follow up with [facility] for colonoscopy outpatient. EDG on 04/30/18 shows - LA class B esophagitis with mild gastritis in the gastric antrum. 2 small nonbleeding ulcers found in the duodenal bulb with duodenal inflammation in the second part and third part, Biopsy taken. Will dc IV Morphine, Tylenol #3 for pain. She has agreed to go to SNF for strengthening, DC to snf in am. Problem Qualifiers (1) Abdominal pain: Qualified Codes: R10.32 - Left lower quadrant pain Edel Mares May 03, 2018 09:20
[2018-05-03] MEDS: oxyCODONE/ACETAMINOPHEN 7.5 MG/325 MG TAB PO SCH ×2 (13:42→18:33)
[2018-05-03] MEDS: SODIUM CHLOR 0.9% 1000 ML INJ 1,000 ML IV SCH ×2 (15:00→19:20)
--- NOTE | 2018-05-03 16:45 | PD.CARD.PN ---
Subjective Subjective Remarks No CP or SOB, feels fine Objective Medications Current Medications Medications (Trade) Dose Ordered Sig/Chica Route Start Time Stop Time Status Last Admin Ciprofloxacin/ Dextrose 200 ml @ 200 mls/hr Q12H IV 04/27/18 14:00 05/03/18 13:41 Metronidazole 100 ml @ 100 mls/hr Q8H IV 04/27/18 12:00 05/03/18 11:14 Sodium Chloride 1,000 ml @ 100 mls/hr Q10H IV 04/27/18 03:20 05/03/18 15:00 (NS Flush) 2 ml UNSCH PRN IV FLUSH 04/27/18 03:30 (NS Flush) 2 ml BID IV FLUSH 04/27/18 09:00 05/03/18 08:14 (Tylenol) 650 mg Q4H PRN PO 04/27/18 03:30 (Narcan Inj) 0.4 mg UNSCH PRN IV PUSH 04/27/18 03:30 (Ativan) 1 mg Q6H PRN PO 04/27/18 03:30 05/03/18 11:13 (Compazine Inj) 5 mg Q4H PRN IV PUSH 04/27/18 03:30 Ceftriaxone Sodium 1000 mg/ Sodium Chloride 100 ml @ 200 mls/hr Q24H IV 04/27/18 06:00 05/03/18 05:37 (Norvasc) 10 mg DAILY PO 04/29/18 09:15 05/03/18 08:14 (Tylenol-Codeine #3) 1 tab Q4H PRN PO 05/02/18 16:15 05/02/18 16:11 (Prinivil) 10 mg Q12H PO 05/03/18 06:00 05/03/18 05:46 (Catapres) 0.1 mg Q2H PRN PO 05/02/18 16:15 (Percocet 7.5-325 Mg) 1 tab TID PO 05/03/18 13:33 05/03/18 13:42 Vital Signs / I&O Vital Signs Date Time Temp Pulse Resp B/P (MAP) Pulse Ox O2 Delivery O2 Flow Rate FiO2 05/03/18 16:01 86 05/03/18 15:30 98.7 84 18 142/69 (93) 93 05/03/18 15:00 81 05/03/18 14:00 80 05/03/18 13:00 94 05/03/18 12:01 89 05/03/18 11:15 98.3 89 18 163/78 (106) 93 05/03/18 11:00 96 05/03/18 10:00 82 05/03/18 09:00 84 05/03/18 08:15 99.1 87 18 156/75 (102) 94 05/03/18 08:00 84 05/03/18 07:49 94 21 05/03/18 07:00 74 05/03/18 06:00 76 05/03/18 05:00 68 05/03/18 04:00 78 05/03/18 03:30 79 16 140/60 (86) 94 05/03/18 03:00 72 05/03/18 02:00 86 05/03/18 01:00 80 05/03/18 00:00 80 05/02/18 23:15 80 16 150/64 (92) 95 05/02/18 23:00 79 05/02/18 22:00 78 18 21:00 78 18 20:00 84 18 19:54 95 21 18 19:40 98.9 94 18 127/60 (82) 93 05/02/18 19:00 90 18 18:00 92 18 17:30 18 18 17:00 76 I/O 18 05/02/18 05/02/18 1818 18/05/03/18 07:00 15:00 23:00 07:00 15:00 23:00 Intake Total 2206 ml 700 ml 1780 ml 111 ml Output Total 400 ml 450 ml Balance 2206 ml 300 ml 1330 ml 111 ml Intake Oral 240 ml 600 ml 480 ml IV Total 1966 ml 100 ml 1300 ml 111 ml Output Urine Total 400 ml 450 ml # Voids 3 1 # Bowel Movements 1 1 1 Physical Exam GENERAL: In NAD. SKIN: Warm and dry. HEAD: Normocephalic. EYES: No scleral icterus. No injection or drainage. NECK: Supple, trachea midline. No JVD or lymphadenopathy. CARDIOVASCULAR: Regular rate and rhythm without murmurs, gallops, or rubs. RESPIRATORY: Breath sounds equal bilaterally. No accessory muscle use. GASTROINTESTINAL: Abdomen soft, non-tender, nondistended. MUSCULOSKELETAL: No cyanosis, or edema. Laboratory Laboratory Tests Test 05/03/18 04:51 White Blood Count 11.1 TH/MM3 Red Blood Count 3.51 MIL/MM3 Hemoglobin 11.2 GM/DL Hematocrit 33.4 % Mean Corpuscular Volume 95.1 FL Mean Corpuscular Hemoglobin 32.0 PG Mean Corpuscular Hemoglobin Concent 33.6 % Red Cell Distribution Width 13.4 % Platelet Count 200 TH/MM3 Mean Platelet Volume 10.1 FL Assessment and Plan Problem List: (1) Abdominal pain ICD Codes: R10.9 - Unspecified abdominal pain Status: Acute (2) Elevated troponin level ICD Codes: R74.8 - Abnormal levels of other serum enzymes (3) Dyslipidemia ICD Codes: E78.5 - Hyperlipidemia, unspecified (4) HTN (hypertension) ICD Codes: I10 - Essential (primary) hypertension Status: Chronic Assessment and Plan No new cardiac issues. Continue current program. Adenosine stress test with no evidence of ischemia. Echo with nl LV systolic function. Mild troponin elevation , but no evidence of ACS. EGD showed duodenal ulcers and gastritis. Continue current program. Increase activity, PT. Anticipate discharge to rehab as planned tomorrow. Problem Qualifiers (1) Abdominal pain: Qualified Codes: R10.32 - Left lower quadrant pain (2) HTN (hypertension): Qualified Codes: I10 - Essential (primary) hypertension Leann Hill MD May 03, 2018 16:44
[2018-05-04] VITALS (12 sets, daily range): BP systolic 151–169; BP diastolic 74–83; PULSE 64–101; RESP 16–18; TEMP 97.7–98.5; O2SAT 94–96
[2018-05-04] MEDS: LORazepam 1 MG TAB PO PRN ×2 (00:15→09:23)
[2018-05-04] MEDS: ACETAMINOPHEN/CODEINE 300 MG/30 MG TAB PO PRN (00:22)
[2018-05-04] MEDS: CIPROFLOXACIN 400 MG PREMIX 200 ML IV SCH (01:47)
[2018-05-04] MEDS: metroNIDAZOLE 500 MG INJ 100 ML IV SCH (03:40)
[2018-05-04] MEDS: SODIUM CHLOR 0.9% 1000 ML INJ 1,000 ML IV SCH (05:26)
[2018-05-04] MEDS: cefTRIAXone INJ 1,000 MG in SODIUM CHLORIDE 0.9% INJ 100 ML IV SCH (06:06)
[2018-05-04] MEDS: LISINOPRIL 10 MG TAB PO SCH (06:07)
[2018-05-04] MEDS: oxyCODONE/ACETAMINOPHEN 7.5 MG/325 MG TAB PO SCH (07:40)
[2018-05-04] MEDS: SODIUM CHLORIDE 0.9% FLUSH 10 ML FLUSH IV FLUSH SCH (07:40)
[2018-05-04] MEDS ORDERED: OXYC1TAB35 PO (07:59)
[2018-05-04] MEDS ORDERED: LISI10TA3 PO (07:59)
[2018-05-04] MEDS ORDERED: METR-1 PO (07:59)
[2018-05-04] MEDS ORDERED: AMLO10 PO (07:59)
[2018-05-04] MEDS ORDERED: CIPR250T52 PO (07:59)
--- NOTE | 2018-05-04 08:03 | HHI.DS ---
Discharge Summary Admission Date Apr 27, 2018 at 03:28 Admitting Diagnosis ACS; colitis Procedures Nuclear stress on 04/27/18 Upper GI 04/30/18 Brief History 82-year-old female came to ER for AMS and abdominal pain. She has past history of chronic abdominal pain and chronic nausea for several years. Pain and nausea worse over the weekend. She denies vomiting, no diarrhea or loose stools. She has cancelled her last 4 appointments in office. Caregiver with her reported that on Thursday she was her typical self but today she seems confused disoriented complains of increasing nausea poor appetite and abdominal pain. She has been [facility] with [facility] Also caregiver reports that she suspects that the patient has been taking her significant other's medications as the significant other accused her of taking his medications. Patient with known prior history of anxiety depression colon cancer with partial colectomy breast cancer with lumpectomy hypertension dyslipidemia and chronic pain syndrome. CBC/BMP: 05/03/18 0451 Significant Findings Laboratory Tests Test 05/03/18 04:51 White Blood Count 11.1 TH/MM3 (4.0-11.0) Red Blood Count 3.51 MIL/MM3 (4.00-5.30) Hemoglobin 11.2 GM/DL (11.6-15.3) Hematocrit 33.4 % (35.0-46.0) PE at Discharge GENERAL: Well-developed well-nourished female no acute respiratory distress SKIN: Warm and dry. HEAD: Atraumatic. Normocephalic. EYES: Pupils equal and round. No scleral icterus. No injection or drainage. ENT: No nasal bleeding or discharge. Mucous membranes pink and moist. NECK: Trachea midline. No JVD. CARDIOVASCULAR: Regular rate and rhythm. RESPIRATORY: Clear to auscultation. Breath sounds equal bilaterally, No Wheezes or Rhonchi GASTROINTESTINAL: Abdomen soft, tender, + BS MUSCULOSKELETAL: Extremities without clubbing, cyanosis, or edema. No obvious deformities. NEUROLOGICAL: Awake and alert. No obvious cranial nerve deficits. Normal speech , [facility]: Appropriate mood and affect; insight and judgment normal. Hospital Course . EDG on 04/30/18 shows - LA class B esophagitis with mild gastritis in the gastric antrum. 2 small nonbleeding ulcers found in the duodenal bulb with duodenal inflammation in the second part and third part, Biopsy taken. Started on Cipro and Flagyl. Will follow up outpatient for colonoscopy. Microbiology Date/Time Source Procedure Growth Status 04/27/18 01:00 Blood Peripheral Aerobic Blood Culture - Final NO GROWTH IN 5 DAYS Complete 04/27/18 01:00 Blood Peripheral Anaerobic Blood Culture - Final NO GROWTH IN 5 DAYS Complete 04/28/18 02:45 Stool Stool Cryptosporidium Exam - Final NEGATIVE - NO CRYPTOSPORIDIUM ANTIGEN... Complete 04/28/18 02:45 Stool Stool Giardia Antigen (CHITO) - Final NEGATIVE - NO GIARDIA ANTIGEN DETECTE... Complete 04/27/18 00:30 Urine Clean Catch Urine Culture - Final 50-100,000 CFU/ML MIXED GRAM POSITIVE... Complete Upper GI done on Pt Condition on Discharge: Stable Discharge Disposition: Discharge to SNF Discharge Instructions DIET: Follow Instructions for: As Tolerated, No Restrictions Activities you can perform: Regular-No Restrictions New Medications: Ciprofloxacin (Cipro) 250 Mg Tab 250 MG PO BID for Infection for 5 Days, #10 TAB 0 Refills Metronidazole (Flagyl) 500 Mg Tab 500 MG PO QID for Infection for 5 Days, TAB 0 Refills Amlodipine (Norvasc) 10 Mg Tab 10 MG PO DAILY for Blood Pressure Management for 30 Days, #30 TAB Lisinopril (Lisinopril) 10 Mg Tab 10 MG PO Q12H for Blood Pressure Management for 30 Days, #60 TAB Oxycodone HCl/Acetaminophen (Oxycodon-Acetaminophen 7.5-325) 7.5 Mg-325 Mg Tablet 1 TAB PO TID for Pain Management, #21 TAB Continued Medications: Acetaminophen (Tylenol) 325 Mg Tab 650 MG PO Q4H PRN for PAIN SCALE 1 TO 10, TAB 0 Refills Lorazepam (Lorazepam) 1 Mg Tab 1 MG PO Q6H PRN for ANXIETY, TAB 0 Refills Additional Information cbc, bmp in am. Edel Mares May 04, 2018 08:03
--- NOTE | 2018-05-04 09:34 | PD.CARD.PN ---
Subjective Subjective Remarks No CP or SOB, feels much better Objective Medications Current Medications Medications (Trade) Dose Ordered Sig/Chica Route Start Time Stop Time Status Last Admin Ciprofloxacin/ Dextrose 200 ml @ 200 mls/hr Q12H IV 04/27/18 14:00 05/04/18 01:47 Metronidazole 100 ml @ 100 mls/hr Q8H IV 04/27/18 12:00 05/04/18 03:40 Sodium Chloride 1,000 ml @ 100 mls/hr Q10H IV 04/27/18 03:20 05/04/18 05:26 (NS Flush) 2 ml UNSCH PRN IV FLUSH 04/27/18 03:30 (NS Flush) 2 ml BID IV FLUSH 04/27/18 09:00 05/03/18 08:14 (Tylenol) 650 mg Q4H PRN PO 04/27/18 03:30 (Narcan Inj) 0.4 mg UNSCH PRN IV PUSH 04/27/18 03:30 (Ativan) 1 mg Q6H PRN PO 04/27/18 03:30 05/04/18 09:23 (Compazine Inj) 5 mg Q4H PRN IV PUSH 04/27/18 03:30 Ceftriaxone Sodium 1000 mg/ Sodium Chloride 100 ml @ 200 mls/hr Q24H IV 04/27/18 06:00 05/04/18 06:06 (Norvasc) 10 mg DAILY PO 04/29/18 09:15 05/04/18 07:40 (Tylenol-Codeine #3) 1 tab Q4H PRN PO 05/02/18 16:15 05/04/18 00:22 (Prinivil) 10 mg Q12H PO 05/03/18 06:00 05/04/18 06:07 (Catapres) 0.1 mg Q2H PRN PO 05/02/18 16:15 (Percocet 7.5-325 Mg) 1 tab TID PO 05/03/18 13:33 05/04/18 07:40 Vital Signs / I&O Vital Signs Date Time Temp Pulse Resp B/P (MAP) Pulse Ox O2 Delivery O2 Flow Rate FiO2 05/04/18 09:00 89 05/04/18 08:35 97.7 101 16 169/83 (111) 95 05/04/18 08:00 99 05/04/18 07:00 82 05/04/18 06:00 74 05/04/18 05:00 78 05/04/18 04:44 98.4 86 18 156/80 (105) 96 05/04/18 04:07 72 05/04/18 03:00 73 05/04/18 02:00 69 05/04/18 01:00 70 05/04/18 00:00 64 05/04/18 00:00 98.5 80 18 151/74 (99) 94 05/03/18 23:00 80 05/03/18 22:00 76 05/03/18 21:00 105 05/03/18 20:00 98.4 105 18 156/74 (101) 95 05/03/18 18:00 74 05/03/18 17:00 82 05/03/18 16:01 86 05/03/18 15:30 98.7 84 18 142/69 (93) 93 05/03/18 15:00 81 05/03/18 14:00 80 05/03/18 13:00 94 05/03/18 12:01 89 05/03/18 11:15 98.3 89 18 163/78 (106) 93 05/03/18 11:00 96 05/03/18 10:00 82 I/O 05/03/18 05/03/18 05/03/18 05/04/18 05/04/18 05/04/18 07:00 15:00 23:00 07:00 15:00 23:00 Intake Total 1780 ml 111 ml 480 ml 240 ml Output Total 450 ml 600 ml 400 ml Balance 1330 ml 111 ml -120 ml -160 ml Intake Oral 480 ml 480 ml 240 ml IV Total 1300 ml 111 ml Output Urine Total 450 ml 600 ml 400 ml # Voids 1 # Bowel Movements 1 0 Physical Exam GENERAL: In NAD, sitting in the chair SKIN: Warm and dry. HEAD: Normocephalic. EYES: No scleral icterus. No injection or drainage. NECK: Supple, trachea midline. No JVD or lymphadenopathy. CARDIOVASCULAR: Regular rate and rhythm without murmurs, gallops, or rubs. RESPIRATORY: Breath sounds equal bilaterally. No accessory muscle use. GASTROINTESTINAL: Abdomen soft, non-tender, nondistended. MUSCULOSKELETAL: No cyanosis, or edema. Assessment and Plan Problem List: (1) Abdominal pain ICD Codes: R10.9 - Unspecified abdominal pain Status: Acute (2) Elevated troponin level ICD Codes: R74.8 - Abnormal levels of other serum enzymes (3) Dyslipidemia ICD Codes: E78.5 - Hyperlipidemia, unspecified (4) HTN (hypertension) ICD Codes: I10 - Essential (primary) hypertension Status: Chronic Assessment and Plan Overall improvement. Continue current program. Adenosine stress test with no evidence of ischemia. Echo with nl LV systolic function. Mild troponin elevation , but no evidence of ACS. EGD showed duodenal ulcers and gastritis. Increase activity. Discharge to rehab as planned. Problem Qualifiers (1) Abdominal pain: Qualified Codes: R10.32 - Left lower quadrant pain (2) HTN (hypertension): Qualified Codes: I10 - Essential (primary) hypertension Leann Hill MD May 04, 2018 09:34
== END 2018-05-04 10:05 | DRG 392 ==
LOC: PHED 23:37 → PHEDA 04-27 03:28 → HCIS 04-27 08:30
PROVIDERS: ADMIT Family Medicine; ATTEND Family Medicine
PROC: 0DB78ZX Excision of Stomach, Pylorus, Via Natural or Artificial Opening Endoscopic, Diagnostic (ICD-10-PCS; principal; 2018-04-30 10:18)
DX: K29.70 Gastritis, unspecified, without bleeding (principal); I24.9 Acute ischemic heart disease, unspecified; K26.9 Duodenal ulcer, unspecified as acute or chronic, without hemorrhage or perforation; K76.0 Fatty (change of) liver, not elsewhere classified; K21.0 Gastro-esophageal reflux disease with esophagitis; K52.9 Noninfective gastroenteritis and colitis, unspecified; E78.5 Hyperlipidemia, unspecified; F41.9 Anxiety disorder, unspecified; G89.4 Chronic pain syndrome; I10 Essential (primary) hypertension; R10.32 Left lower quadrant pain; R51 Headache; F41.8 Other specified anxiety disorders; R11.2 Nausea with vomiting, unspecified; G89.29 Other chronic pain; K29.80 Duodenitis without bleeding; Z23 Encounter for immunization; Z87.440 Personal history of urinary (tract) infections; Z72.0 Tobacco use; Z85.038 Personal history of other malignant neoplasm of large intestine; Z85.3 Personal history of malignant neoplasm of breast; Z90.49 Acquired absence of other specified parts of digestive tract; Z92.21 Personal history of antineoplastic chemotherapy
CPT/HCPCS: 70450; 71045; 73030; 74177; 78452; 80048; 80053; 80307; 81001; 82140; 82272; 82550; 82552; 83605; 83735; 84443; 84484; 85025; 85027; 85610; 85730; 87040; 87086; 87328; 87329; 87493; 87506; 88305; 88312; 90686; 93005; 93017; 93306; 96365; 96375; 99291; A9502; C9113; J0696; J0744; J1644; J2270; J2765; J2785; J7030; Q2038; Q9967